=== PATIENT | female | born 1975 | race Caucasian/White ===

== ENCOUNTER 2019-10-20 08:34 | Emergency (ER) | payer OTHER, SELFPAY ==
--- NOTE | ~2019-10-20 | CT_ITS ---
EXAMINATION: CT abdomen pelvis w con DATE: 10/20/2019 09:59 INDICATION: Right-sided abdominal pain TECHNIQUE: Computed tomography (CT) of the abdomen and pelvis was performed with 100 mL Omnipaque-350 intravenous contrast. Automated exposure control and iterative reconstruction technique were employe d. The dose-length product was 1537.63 mGy-cm. COMPARISON: 01/22/2010 FINDINGS: In the dependent right lower lobe there are ground glass opacities and ill-defined centrilobular nodu les in a small region becoming confluent consistent with pneumonia or aspiration. Heart size is david l. No pericardial or pleural effusion. Small sliding-type hiatal hernia with suture line along the gr eater curvature of the stomach consistent with prior sleeve gastrectomy. Gradient of dependently laye ring high attenuation sludge versus gallstones in the otherwise normal-appearing gallbladder. No dila tion or pericholecystic inflammatory change to suggest acute cholecystitis. Liver, spleen, pancreas, bilateral adrenal glands and right kidney are normal. 2.5 cm left renal cyst. Mild scattered colonic diverticulosis without adjacent inflammatory change to suggest diverticulitis. Small bowel and append ix are normal. Bladder and bilateral adnexa are normal. There is a T-shaped IUD the cross limbs of wh ich are oriented anteroposteriorly as opposed to transversely within the normally oriented anteverted uterus suggesting extension into the myometrium. No free intraperitoneal gas or fluid. No pathologic ally enlarged abdominal or pelvic lymphadenopathy. Moderate thoracic and mild lumbar spondylosis. IMPRESSION: 1. Right lower lobe dependent lung disease consistent with pneumonia or aspiration. 2. Sludge versus gallstones in the normal appearing gallbladder. 3. Diverticulosis. 4. IUD with atypical orientation within the uterus suggesting the limbs may extend into the myometriu m. Reviewed, dictated and finalized at location A. BODY DESIGNER IMPRESSION: 1. Right lower lobe dependent lung disease consistent with pneumonia or aspirat ion. 2. Sludge versus gallstones in the normal appearing gallbladder. 3. Diverticulosis. 4. IUD with atypical orientation within the uterus suggesting the limbs may ext end into the myometrium.
[2019-10-20 08:50] VITALS: BP 156/102; PULSE 107; RESP 20; TEMP 37; O2SAT 100
--- NOTE | 2019-10-20 09:26 | ED.BACK ---
HPI - Back Pain/Injury General Chief Complaint: Back Pain/Injury Stated Complaint: right flank pain Time Seen by Provider: 10/20/19 09:06 Source: patient Mode of arrival: ambulatory Limitations: no limitations History of Present Illness HPI Narrative: This is a 44 year old female that presents to the ER for right sided abdominal pain since yesterday. Reports sharp pain in the right side that radiates into the right lower abdomen. Reports the pain has been constant. Reports it is worse with movement. Also reports some nausea. Denies fever, vomiting, dysuria, or hematuria. Related Data Home Medications Medication Instructions Recorded Confirmed buspirone 5 mg tablet 10 mg PO DAILY 08/02/19 fexofenadine 180 mg tablet 180 mg PO DAILY 08/02/19 levonorgestrel 20 mcg/24 hours (5 1 device I-UTERINE ONCE 08/02/19 yrs) 52 mg intrauterine device ergocalciferol (vitamin D2) 50,000 unit PO WEEKLY 10/20/19 [Vitamin D2] irbesartan 150 mg PO DAILY 10/20/19 paroxetine HCl [Paxil] 50 mg PO QAM 10/20/19 vitamin B complex [B 1 tablet PO DAILY 10/20/19 Complex-Vitamin B12] Allergies Allergy/AdvReac Type Severity Reaction Status Date / Time No Known Allergies Allergy Unverified 10/20/19 09:06 Review of Systems Review of Systems: Narrative: CONSTITUTIONAL: Denies fever CARDIOVASCULAR: Denies chest pain RESPIRATORY: Denies dyspnea. GASTROINTESTINAL: Reports abdominal pain, nausea. Denies vomiting, diarrhea. GENITOURINARY: Denies dysuria or hematuria. All systems reviewed & are unremarkable except as noted in HPI and below PMFSH Past Medical History Medical History (Updated 10/20/19 @ 10:38 by Renee Alvarez PA-C) History of anxiety History of depression History of hypertension History of sleep apnea Surgical History Surgical History (Updated 10/20/19 @ 09:30 by Renee Alvarez PA-C) History of exploratory laparotomy History of gastric bypass Family History Family History (Updated 11/19/17 @ 08:27 by DOCTOR UNKNOWN) Father Diabetes mellitus Hypertension Family history of malignant neoplasm Mother Diabetes mellitus Hypertension Family history of malignant neoplasm Other Family history of arthritis Social History Social History (Updated 10/20/19 @ 09:31 by Renee Alvarez PA-C) Smoking status: Current every day smoker Smoking end date: 09/01/09 Alcohol intake: current Substance use: never Exam Narrative: Exam Narrative: GENERAL: Well-appearing, well-nourished, and in no acute distress. HEAD: Normocephalic, atraumatic. EYES: EOMI. CHEST: Clear to auscultation. No respiratory distress. No wheezes rales or rhonchi HEART: Regular rate and rhythm. No murmur heard. Normal peripheral pulses. ABDOMEN: Soft, nondistended, normal active bowel sounds. Mild tenderness to palpation of the right mid abdomen, without guarding. No CVA tenderness EXTREMITIES: Normal range of motion. No edema. SKIN: Warm, dry, no rash. NEURO: No focal deficits. Alert and oriented x3. PSYCH: Normal mood and affect Course Vital Signs Vital signs: Vital Signs Temperature 98.6 F 10/20/19 08:50 Pulse Rate 107 H 10/20/19 08:50 Respiratory Rate 20 10/20/19 08:50 Blood Pressure 156/102 H 10/20/19 08:50 Pulse Oximetry 100 10/20/19 08:50 Temperature 98.6 F 10/20/19 08:50 Pulse Rate 100 10/20/19 09:40 Respiratory Rate 20 10/20/19 09:40 Blood Pressure 166/103 H 10/20/19 09:40 Pulse Oximetry 99 10/20/19 09:40 MDM - Back Pain/Injury MDM Narrative Medical decision making narrative: Patient presents to the emergency department for right-sided abdominal pain since yesterday. She is afebrile and nontoxic-appearing. Blood pressure is elevated to 150s-160s/100. Patient does have a history of hypertension and reports she did not take her medication this morning. Was instructed to take her medication as prescribed. Otherwise vitals are stable. Mild leukocytosis on CBC to 14.
[2019-10-20 09:40] VITALS: BP 166/103; PULSE 100; RESP 20; O2SAT 99
[2019-10-20 09:41] LABS: Basophils Absolute Auto 0.1 K/mm3 (0.0-0.1); Basophils Percent Auto 0.5 % (0.2-1.2); Eosinophils Absolute Auto 0.2 K/mm3 (0-0.3); Eosinophils Percent Auto 1.3 % (0-4.4); Hematocrit 37.6 % (37.0-47.0); Hemoglobin 12.2 g/dL (12.0-15.0); Immature Granulocyte Absolute 0.05 K/mm3 (0.00-0.031); Immature Granulocyte Percent A 0.3 % (0-0.5); Lymphocytes Absolute Auto 1.87 K/mm3 (0.9-3.2); Lymphocytes Percent Auto 12.9 % (18.3-44.2); Mean Corpuscular HGB Conc 32.4 g/dl (32-36); Mean Corpuscular Hemoglobin 30.3 pg (26-34); Mean Corpuscular Volume 93.5 fl (80-100); Mean Platelet Volume 10.3 fl (7.4-10.4); Monocytes Absolute Auto 0.7 K/mm3 (0.1-0.6); Monocytes Percent Auto 4.8 % (2.6-8.5); Neutrophils Absolute Auto 11.7 K/mm3 (1.3-6.7); Neutrophils Percent Auto 80.2 % (45.5-73.1); Platelet Count Result 235 k/mm3 (150-375); Red Blood Count 4.02 M/mm3 (4.2-5.4); Red Cell Distribution Width 12.9 % (11.5-14.5); White Blood Count 14.5 K/mm3 (4.5-10.0)
[2019-10-20 09:46] LABS: Add Urine Microscopic? YES; Appearance Urine Clear (Clear); Bacteria Urine Trace /hpf; Bilirubin Urine Negative (Negative); Blood Urine 3+ (Negative); Color Urine Colorless (Yellow); Glucose Urine UA Negative (Negative); Ketones Urine Negative (Negative); Leukocyte Esterase Ur Negative LEU/UL (Negative); Mucus Urine Rare /lpf; Nitrate Urine Negative (Negative); Protein Urine Negative (Negative); Specific Grav Ur 1.008 (1.001-1.035); Urobilinogen Urine Negative mg/dL (<2.0); WBC Urine 0-3 /hpf
[2019-10-20 09:53] LABS: Alanine Aminotransferase 21 U/L (4-35); Albumin Level 4.4 g/dL (3.5-5.1); Alkaline Phosphatase 120 U/L (38-126); Aspartate Amino Transferase 24 U/L (14-36); Bilirubin,Total 0.3 mg/dL (0.2-1.3); Blood Urea Nitrogen 20 mg/dL (7-17); Calcium 9.3 mg/dL (8.4-10.2); Carbon Dioxide 24 mmol/L (22-30); Chloride 100 mmol/L (98-107); Estimated CRCL calculation 137 ml/min; Estimated Glomerular Filt Rate > 60; Glucose 93 mg/dL (65-105); Lipase 150 U/L (23-300); Sodium 138 mmol/L (137-145)
[2019-10-20 09:54] LABS: Blood Urea Nitrogen 22 mg/dL (8-26); Estimated CRCL calculation 137 ml/min; Estimated Glomerular Filt Rate > 60
[2019-10-20 10:41] VITALS: BP 160/103; PULSE 99; RESP 18; O2SAT 99
[2019-10-20 11:48] VITALS: BP 142/74; PULSE 88; RESP 16; O2SAT 98
== END 2019-10-20 11:49 | disposition home or self-care (01) ==
PROVIDERS: Physician Assistant; Emergency Provider Family Medicine; PCP Family Medicine
DX: J18.9 Pneumonia, unspecified organism (principal); Z97.5 Presence of (intrauterine) contraceptive device; F41.9 Anxiety disorder, unspecified; F32.9 Major depressive disorder, single episode, unspecified; I10 Essential (primary) hypertension; G47.30 Sleep apnea, unspecified; Z98.84 Bariatric surgery status; K57.90 Diverticulosis of intestine, part unspecified, without perforation or abscess without bleeding; R93.2 Abnormal findings on diagnostic imaging of liver and biliary tract; Z87.891 Personal history of nicotine dependence
CPT/HCPCS: 36415; 74177; 80053; 81001; 81025; 83690; 85025; 99284; A9270; Q9967

== ENCOUNTER 2019-10-26 14:36 | Outpatient (CLI) | payer OTHER, SELFPAY ==
--- NOTE | ~2019-10-26 | US_ITS ---
EXAMINATION: US transvaginal DATE: 10/26/2019 15:06 INDICATION: Right lower quadrant abdominal pain. IUD with irregular positioning on prior CT. TECHNIQUE: Multiple endovaginal sonographic images of the pelvis were obtained. COMPARISON: None. FINDINGS: The uterus measures 7.8 x 3.9 x 5.0 cm. The endometrial complex measures 6 mm in thickness. Near ech ogenic IUD appears centered in the endometrial complex at the lower uterine segment. The IUD that maria r ears to extend into the myometrium posterior to the endometrial complex at the more cephalad uterine body. The side arms which appeared to also extend into the myometrium on the prior CT are not clearly visualized in the current study. There are several hypoechoic uterine fibroids the largest the fundu s measuring 2.2 x 2.1 x 2.0 cm and a smaller at the anterior body of the uterus measuring 1.4 x 1.1 x 2.0 cm The right ovary measures 2.5 x 1.3 x 2.3 cm and contains a 9 mm anechoic follicle. The left o vary is not visualized due to shadowing bowel gas at the left adnexal region. Vascular flow is identi fied in the right ovary on color Doppler. There is no free fluid in the pelvis. IMPRESSION: 1. Fibroid uterus. 2. IUD which appears centered in the endometrial complex at the lower uterine segment but which appea rs to extend into the myometrium posterior to the endometrial complex at the uterine body. Reviewed, dictated and finalized at location A. HEAD WRECKER IMPRESSION: 1. Fibroid uterus. 2. IUD which appears centered in the endometrial complex at the lower uterine s egment but which appears to extend into the myometrium posterior to the endomet rial complex at the uterine body.
== END 2019-10-26 14:37 ==
PROVIDERS: PCP Family Medicine; Visit Provider Obstetrics & Gynecology Gynecology
DX: D25.9 Leiomyoma of uterus, unspecified (principal); Z97.5 Presence of (intrauterine) contraceptive device
CPT/HCPCS: 76830

== ENCOUNTER 2019-10-29 14:19 | Outpatient (CLI) | payer OTHER, SELFPAY ==
[2019-10-29 15:41] LABS: Basophils Absolute Auto 0.1 K/mm3 (0.0-0.1); Basophils Percent Auto 0.9 % (0.2-1.2); Eosinophils Absolute Auto 0.2 K/mm3 (0-0.3); Eosinophils Percent Auto 2.7 % (0-4.4); Hematocrit 39.2 % (37.0-47.0); Hemoglobin 12.7 g/dL (12.0-15.0); Immature Granulocyte Absolute 0.03 K/mm3 (0.00-0.031); Immature Granulocyte Percent A 0.4 % (0-0.5); Lymphocytes Absolute Auto 1.82 K/mm3 (0.9-3.2); Lymphocytes Percent Auto 21.5 % (18.3-44.2); Mean Corpuscular HGB Conc 32.4 g/dl (32-36); Mean Corpuscular Hemoglobin 30.3 pg (26-34); Mean Corpuscular Volume 93.6 fl (80-100); Mean Platelet Volume 10.4 fl (7.4-10.4); Monocytes Absolute Auto 0.6 K/mm3 (0.1-0.6); Monocytes Percent Auto 7.3 % (2.6-8.5); Neutrophils Absolute Auto 5.7 K/mm3 (1.3-6.7); Neutrophils Percent Auto 67.2 % (45.5-73.1); Platelet Count Result 273 k/mm3 (150-375); Red Blood Count 4.19 M/mm3 (4.2-5.4); White Blood Count 8.5 K/mm3 (4.5-10.0)
[2019-10-29 16:06] LABS: Alanine Aminotransferase 25 U/L (4-35); Albumin Level 4.1 g/dL (3.5-5.1); Alkaline Phosphatase 98 U/L (38-126); Aspartate Amino Transferase 28 U/L (14-36); Bilirubin,Total 0.4 mg/dL (0.2-1.3); Blood Urea Nitrogen 14 mg/dL (7-17); Calcium 8.7 mg/dL (8.4-10.2); Carbon Dioxide 26 mmol/L (22-30); Chloride 102 mmol/L (98-107); Estimated Glomerular Filt Rate > 60; Glucose 100 mg/dL (65-105); Potassium 4.4 mmol/L (3.4-5.0); Sodium 138 mmol/L (137-145)
== END 2019-10-29 14:20 | disposition home or self-care (01) ==
PROVIDERS: PCP Family Medicine; Visit Provider Physician Assistant
DX: R10.31 Right lower quadrant pain (principal)
CPT/HCPCS: 36415; 80053; 85025

== ENCOUNTER 2020-03-27 12:47 | Emergency (ER) | payer OTHER, SELFPAY ==
[2020-03-27 12:52] VITALS: BP 160/114; PULSE 92; RESP 18; TEMP 36.8; O2SAT 98
--- NOTE | 2020-03-27 13:17 | ED.GENADULT ---
HPI - General Adult General Chief complaint: Headache <MIGUEL Hudson Last Filed: 03/27/20 14:56> Stated complaint: high bp/barr <MIGUEL Hudson Last Filed: 03/27/20 14:56> Time Seen by Provider: 03/27/20 13:02 <MIGUEL Hudson Last Filed: 03/27/20 14:56> Source: patient <MIGUEL Hudson Last Filed: 03/27/20 14:56> Mode of arrival: ambulatory <MIGUEL Hudson Last Filed: 03/27/20 14:56> Limitations: no limitations <MIGUEL Hudson Last Filed: 03/27/20 14:56> History of Present Illness HPI narrative: Patient is a 44-year-old female who presents to emergency department for evaluation of headache since Friday which is bandlike with pressure sensation denies similar occurrence in the past has taken [id number] medications with minimal improvement. Initially had pressure behind the eyes and thought it might be congestion but denies other URI symptoms or runny nose. Patient on arrival is in no distress resting comfortably in the room has not taken anything today. Presents with normal gait has not been seen for this complaint <MIGUEL Hudson Last Filed: 03/27/20 14:56> Related Data Home medications: Home Medications Medication Instructions Recorded Confirmed fexofenadine 180 mg tablet 180 mg PO DAILY 08/02/19 levonorgestrel 20 mcg/24 hours (5 1 device I-UTERINE ONCE 08/02/19 yrs) 52 mg intrauterine device ergocalciferol (vitamin D2) 50,000 unit PO WEEKLY 10/20/19 [Vitamin D2] vitamin B complex [B 1 tablet PO DAILY 10/20/19 Complex-Vitamin B12] <MIGUEL Hudson Last Filed: 03/27/20 14:56> Allergies/adverse reactions: Allergies Allergy/AdvReac Type Severity Reaction Status Date / Time No Known Allergies Allergy Verified 03/27/20 12:51 <MIGUEL Hudson Last Filed: 03/27/20 14:56> Review of Systems Review of Systems: All systems reviewed & are unremarkable except as noted in HPI and below <MIGUEL Hudson Last Filed: 03/27/20 14:56> [facility] Past Medical History Medical History: Medical History Anxiety Bilateral lower extremity edema Essential hypertension History of anxiety History of depression History of hypertension History of sleep apnea Myalgia Nasal sore RLL pneumonia RLQ abdominal pain <Devaughn Rangel PA-C - Last Filed: 03/27/20 14:56> Surgical History Surgical History: Surgical History History of exploratory laparotomy History of gastric bypass <Devaughn Rangel PA-C - Last Filed: 03/27/20 14:56> Family History Family History: Family History (Updated 11/19/17 @ 08:27 by DOCTOR UNKNOWN) Father Diabetes mellitus Hypertension Family history of malignant neoplasm Mother Diabetes mellitus Hypertension Family history of malignant neoplasm Other Family history of arthritis <Devaughn Rangel PA-C - Last Filed: 03/27/20 14:56> Social History Social History: Social History Smoking status: Current every day smoker Smoking end date: 09/01/09 Alcohol intake: current Substance use: never Gender identity (if verbalized by the patient): Female <Devaughn Rangel PA-C - Last Filed: 03/27/20 14:56> Exam Narrative: Exam Narrative: GENERAL: Well-appearing, obese, and in no acute distress. HEAD: Normocephalic, atraumatic. EYES: PERRLA and EOMI. ENT: Nares clear, no rhinorrhea or epistaxis. Mucous membranes moist. Oropharynx without tonsillar hypertrophy exudate or other lesions. Bilateral TMs pearly krishnan nonbulging NECK: Supple. No adenopathy or masses. CHEST: Clear to auscultation. No respiratory distress. No wheezes rales or rhonchi HEART: Regular rate and rhythm. No murmur heard. Normal peripheral pulses. ABDOMEN: S
[2020-03-27 13:31] LABS: Basophils Absolute Auto 0.1 K/mm3 (0.0-0.1); Basophils Percent Auto 0.9 % (0.2-1.2); Eosinophils Absolute Auto 0.3 K/mm3 (0-0.3); Eosinophils Percent Auto 3.3 % (0-4.4); Hematocrit 38.5 % (37.0-47.0); Hemoglobin 12.8 g/dL (12.0-15.0); Immature Granulocyte Absolute 0.03 K/mm3 (0.00-0.031); Immature Granulocyte Percent A 0.3 % (0-0.5); Lymphocytes Absolute Auto 1.63 K/mm3 (0.9-3.2); Lymphocytes Percent Auto 16.7 % (18.3-44.2); Mean Corpuscular HGB Conc 33.2 g/dl (32-36); Mean Corpuscular Hemoglobin 30.5 pg (26-34); Mean Corpuscular Volume 91.7 fl (80-100); Mean Platelet Volume 10.1 fl (7.4-10.4); Monocytes Absolute Auto 0.7 K/mm3 (0.1-0.6); Monocytes Percent Auto 6.8 % (2.6-8.5); Platelet Count Result 250 k/mm3 (150-375); Red Cell Distribution Width 12.9 % (11.5-14.5); White Blood Count 9.8 K/mm3 (4.5-10.0)
[2020-03-27 13:43] LABS: Alanine Aminotransferase 24 U/L (4-35); Albumin Level 4.4 g/dL (3.5-5.1); Alkaline Phosphatase 111 U/L (38-126); Aspartate Amino Transferase 22 U/L (14-36); Bilirubin,Total 0.3 mg/dL (0.2-1.3); Blood Urea Nitrogen 17 mg/dL (7-17); Calcium 8.7 mg/dL (8.4-10.2); Carbon Dioxide 24 mmol/L (22-30); Chloride 101 mmol/L (98-107); Estimated CRCL calculation 142 ml/min; Estimated Glomerular Filt Rate > 60; Glucose 115 mg/dL (65-105); Sodium 135 mmol/L (137-145)
[2020-03-27 13:58] VITALS: BP 179/112; PULSE 83; RESP 20; O2SAT 98
[2020-03-27] MEDS: FAMOTIDINE 20 MG/2 ML VIAL IV PUSH (14:03)
[2020-03-27] MEDS: SODIUM CHLORIDE 0.9% IV 1,000 ML 999 ML IV CONT (14:03)
[2020-03-27 14:44] VITALS: BP 170/102; PULSE 83; RESP 18; O2SAT 99
[2020-03-27 15:05] VITALS: BP 160/107; PULSE 89; RESP 20; O2SAT 99
== END 2020-03-27 15:09 | disposition home or self-care (01) ==
PROVIDERS: Emergency Medicine Emergency Medical Services; Emergency Provider Emergency Medicine; PCP Family Medicine
DX: R51 Headache (principal); I10 Essential (primary) hypertension; G47.30 Sleep apnea, unspecified; Z98.84 Bariatric surgery status
CPT/HCPCS: 36415; 80053; 85025; 96361; 96365; 96375; 99284; J0131; J2060; J7030

== ENCOUNTER 2020-03-28 13:55 | Outpatient (CLI) | payer OTHER, SELFPAY ==
--- NOTE | ~2020-03-28 | CT_ITS ---
EXAMINATION: CT brain wo con INDICATION: Headache COMPARISON: 07/21/2018 TECHNIQUE: Standard unenhanced head CT. The dose-length product (DLP) was 605.33 mGy-cm. The mA was a djusted according to patient size. Iterative reconstruction technique was employed. FINDINGS: There is no intracranial hemorrhage, acute infarction, or abnormal mass lesion. The ventric les are normal. There is no abnormal mass effect or midline shift. The krishnan-white matter differentiat ion is normal. The basal cisterns are patent. The orbits are normal. The paranasal sinuses, mastoids and calvarium are normal. IMPRESSION: 1. No acute intracranial abnormality. Reviewed, dictated and finalized at location B.
== END 2020-03-28 13:56 | disposition home or self-care (01) ==
PROVIDERS: PCP Family Medicine; Visit Provider Physician Assistant
DX: R51 Headache (principal)
CPT/HCPCS: 70450

== ENCOUNTER 2020-04-01 12:37 | Outpatient (CLI) | payer OTHER, SELFPAY ==
[2020-04-01 12:51] LABS: Basophils Absolute Auto 0.1 K/mm3 (0.0-0.1); Basophils Percent Auto 0.9 % (0.2-1.2); Eosinophils Absolute Auto 0.3 K/mm3 (0-0.3); Eosinophils Percent Auto 3.2 % (0-4.4); Hematocrit 35.3 % (37.0-47.0); Hemoglobin 11.8 g/dL (12.0-15.0); Immature Granulocyte Absolute 0.04 K/mm3 (0.00-0.031); Immature Granulocyte Percent A 0.4 % (0-0.5); Lymphocytes Absolute Auto 1.92 K/mm3 (0.9-3.2); Lymphocytes Percent Auto 21.1 % (18.3-44.2); Mean Corpuscular HGB Conc 33.4 g/dl (32-36); Mean Corpuscular Volume 92.7 fl (80-100); Mean Platelet Volume 10.6 fl (7.4-10.4); Monocytes Absolute Auto 0.7 K/mm3 (0.1-0.6); Monocytes Percent Auto 7.2 % (2.6-8.5); Neutrophils Absolute Auto 6.1 K/mm3 (1.3-6.7); Neutrophils Percent Auto 67.2 % (45.5-73.1); Platelet Count Result 243 k/mm3 (150-375); Red Blood Count 3.81 M/mm3 (4.2-5.4); Red Cell Distribution Width 12.8 % (11.5-14.5); White Blood Count 9.1 K/mm3 (4.5-10.0)
== END 2020-04-01 12:38 | disposition home or self-care (01) ==
LOC: ANHLAB 12:39
PROVIDERS: PCP Family Medicine; Visit Provider Physician Assistant
DX: R51 Headache (principal)
CPT/HCPCS: 36415; 85025

== ENCOUNTER 2020-04-07 08:41 | Emergency (ER) | payer OTHER, SELFPAY ==
[2020-04-07 08:47] VITALS: BP 168/107; PULSE 77; RESP 16; TEMP 36.7; O2SAT 98
--- NOTE | 2020-04-07 09:03 | ED.HA ---
HPI - Headache General Chief Complaint: Headache Stated Complaint: Headache x2 weeks Time Seen by Provider: 04/07/20 08:49 History of Present Illness HPI Narrative: Patient is a 44-year-old female who presents ER with headache. Ongoing for 13 days. Has been seen in the ER once before. She then followed up with her PCP who performed an outpatient CT scan on her brain. Patient also was noted to have had elevated blood pressures so she has been started on additional blood pressure medication. She reports that the only thing that has helped intermittently is Excedrin migraine which only helps for about 1 hour. She has no fevers or chills or sweats. She has had some mild nausea and occasional vomiting. She tried the sinus decongestants but she had no actual sinus congestion. Headache is throbbing and located over the left frontal region extending around the left side of her head. She does report that the headache is been diffuse at times as well. No trauma. Related Data Home Medications Medication Instructions Recorded Confirmed fexofenadine 180 mg tablet 180 mg PO DAILY 08/02/19 levonorgestrel 20 mcg/24 hours (5 1 device I-UTERINE ONCE 08/02/19 yrs) 52 mg intrauterine device ergocalciferol (vitamin D2) 50,000 unit PO WEEKLY 10/20/19 [Vitamin D2] vitamin B complex [B 1 tablet PO DAILY 10/20/19 Complex-Vitamin B12] Allergies Allergy/AdvReac Type Severity Reaction Status Date / Time No Known Allergies Allergy Verified 04/07/20 08:47 Review of Systems Review of Systems: All systems reviewed & are unremarkable except as noted in HPI and below Constitutional: Constitutional: Denies chills and Denies fever(s) Eyes: Eyes: Denies change in vision and Reports photophobia ENT: Denies nasal congestion and Denies sore throat Gastrointestinal: Gastrointestinal: Reports nausea and Reports vomiting Neurologic: Denies dizziness, Reports headache(s), Denies focal weakness and Denies numbness PMFSH Past Medical History Medical History (Updated 04/07/20 @ 11:17 by Curtis Becerril MD) Anxiety Bilateral lower extremity edema Essential hypertension Headache History of anxiety History of depression History of hypertension History of sleep apnea Myalgia Nasal sore RLL pneumonia RLQ abdominal pain Surgical History Surgical History History of exploratory laparotomy History of gastric bypass Family History Family History (Updated 11/19/17 @ 08:27 by DOCTOR UNKNOWN) Father Diabetes mellitus Hypertension Family history of malignant neoplasm Mother Diabetes mellitus Hypertension Family history of malignant neoplasm Other Family history of arthritis Social History Social History (Updated 03/28/20 @ 11:03 by Ritu Fernando) Smoking status: Current every day smoker Smoking end date: 09/01/09 Alcohol intake: current Drinks per week: 12 Substance use: never Substance use type: does not use 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 HEAD: Normocephalic, atraumatic. EYES: PERRL and EOMI. ENT: Mucous membranes moist. CHEST: Clear to auscultation. No respiratory distress. HEART: Regular rate and rhythm. Normal peripheral pulses. ABDOMEN: Soft, nontender, nondistended. EXTREMITIES: Normal range of motion. No edema. NEURO: No focal deficits. Alert and oriented x3. PSYCH: Normal mood and affect. Course Course Emergency Course: Moderate improvement with Toradol/Reglan/Benadryl. Had additional nausea so she received Zofran. Unremarkable lab work. Recommend patient follow-up with PCP, keep track of possible triggers of headache, and may require neurology consultation. Vital Signs Vital signs: Vital Signs Temperature 98.1 F 04/07/20
[2020-04-07] MEDS: diphenhydrAMINE HCl INJ 50 MG/ML VIAL 25 MG IV PUSH (09:37)
[2020-04-07] MEDS: KETOROLAC 30 MG/ML VIAL (*BKC) IV PUSH (09:37)
[2020-04-07] MEDS: METOCLOPRAMIDE HCL INJ 10 MG/2 ML VIAL IV PUSH (09:38)
[2020-04-07 09:53] LABS: Basophils Absolute Auto 0.1 K/mm3 (0.0-0.1); Basophils Percent Auto 0.8 % (0.2-1.2); Eosinophils Absolute Auto 0.3 K/mm3 (0-0.3); Eosinophils Percent Auto 3.1 % (0-4.4); Hematocrit 41.1 % (37.0-47.0); Hemoglobin 13.9 g/dL (12.0-15.0); Immature Granulocyte Absolute 0.04 K/mm3 (0.00-0.031); Immature Granulocyte Percent A 0.4 % (0-0.5); Lymphocytes Absolute Auto 2.12 K/mm3 (0.9-3.2); Lymphocytes Percent Auto 20.6 % (18.3-44.2); Mean Corpuscular HGB Conc 33.8 g/dl (32-36); Mean Corpuscular Hemoglobin 30.7 pg (26-34); Mean Corpuscular Volume 90.7 fl (80-100); Mean Platelet Volume 10.8 fl (7.4-10.4); Monocytes Absolute Auto 0.9 K/mm3 (0.1-0.6); Monocytes Percent Auto 8.4 % (2.6-8.5); Neutrophils Absolute Auto 6.9 K/mm3 (1.3-6.7); Neutrophils Percent Auto 66.7 % (45.5-73.1); Platelet Count Result 270 k/mm3 (150-375); Red Blood Count 4.53 M/mm3 (4.2-5.4); Red Cell Distribution Width 12.3 % (11.5-14.5); White Blood Count 10.3 K/mm3 (4.5-10.0)
[2020-04-07 10:06] LABS: Alanine Aminotransferase 35 U/L (4-35); Albumin Level 4.5 g/dL (3.5-5.1); Alkaline Phosphatase 104 U/L (38-126); Aspartate Amino Transferase 32 U/L (14-36); Bilirubin,Total 0.5 mg/dL (0.2-1.3); Blood Urea Nitrogen 15 mg/dL (7-17); Carbon Dioxide 25 mmol/L (22-30); Chloride 98 mmol/L (98-107); Estimated CRCL calculation 109 ml/min; Estimated Glomerular Filt Rate > 60; Glucose 110 mg/dL (65-105); Sodium 135 mmol/L (137-145)
[2020-04-07] MEDS: ONDANSETRON INJ 4 MG/2 ML VIAL IV PUSH (10:19)
[2020-04-07 11:23] VITALS: BP 154/94; PULSE 65; RESP 166; O2SAT 97
== END 2020-04-07 11:34 | disposition home or self-care (01) ==
PROVIDERS: Emergency Provider Emergency Medicine; PCP Family Medicine
DX: R51 Headache (principal); I10 Essential (primary) hypertension; G47.30 Sleep apnea, unspecified; Z98.84 Bariatric surgery status; Z87.891 Personal history of nicotine dependence
CPT/HCPCS: 36415; 80053; 85025; 96374; 96375; 99284; J1200; J1885; J2405; J2765

== ENCOUNTER 2020-04-17 14:30 | Outpatient (CLI) | payer OTHER, SELFPAY ==
[2020-04-22 13:09] LABS: Renin 0.17 ng/mL/h (0.25-5.82)
== END 2020-04-17 14:31 | disposition home or self-care (01) ==
PROVIDERS: PCP Family Medicine; Visit Provider Physician Assistant
DX: I10 Essential (primary) hypertension (principal)
CPT/HCPCS: 36415; 82088; 84244

== ENCOUNTER → 2020-04-22 09:10 | Outpatient (CLI) | payer OTHER, SELFPAY ==
--- NOTE | ~2020-04-22 | US_ITS ---
EXAMINATION: US renal BI DATE: 04/22/2020 09:30 INDICATION: Essential hypertension TECHNIQUE: Multiple grayscale and Doppler ultrasound images of the kidneys were obtained. COMPARISON: CT, 10/20/2019 FINDINGS: The right kidney measures 9.3 x 4.6 x 5.6 cm. The left kidney measures 2.8 x 2.4 x 2.6 cm a nd contains a 2.8 cm cyst. The kidneys demonstrate normal parenchymal echogenicity. There is no hydro nephrosis. The bladder is normal. IMPRESSION: 1. Normal kidneys without hydronephrosis. Reviewed, dictated and finalized at location A.
== END ==
PROVIDERS: PCP Family Medicine; Visit Provider Physician Assistant
DX: I10 Essential (primary) hypertension (principal)
CPT/HCPCS: 76775

== ENCOUNTER 2020-06-18 09:36 | Outpatient (CLI) | payer OTHER, SELFPAY ==
--- NOTE | ~2020-06-18 | MR_ITS ---
EXAMINATION: MR brain/brain stem wo con DATE: 06/18/2020 10:29 INDICATION: Headache. TECHNIQUE: Magnetic resonance imaging (MRI) of the brain and brainstem was performed without intraven ous contrast. Sequences included sagittal and axial T1-weighted FSE, axial diffusion-weighted FS EPI, axial T2*-weighted GRE, axial T2-weighted FLAIR Propeller, and axial T2-weighted Propeller. Apparent diffusion coefficient (ADC) maps were created. COMPARISON: Head CT 03/28/2020 FINDINGS: There are scattered areas of nonspecific increased T2-weighted signal intensity in the cere bral white matter, which is within normal limits for the patient's age. There is no intracranial hemo rrhage, acute infarction, or abnormal intracranial mass lesion. The ventricles are normal in size. Th ere is mild mucosal thickening in left maxillary sinus. The orbits are normal. The mastoid air cells are normal. IMPRESSION: 1. Normal aging brain. Reviewed, dictated and finalized at location A. IMPRESSION: 1. Normal aging brain.
== END 2020-06-18 09:37 | disposition home or self-care (01) ==
PROVIDERS: PCP Family Medicine; Visit Provider Psychiatry & Neurology Neurology
DX: R51.9 Headache, unspecified (principal)
CPT/HCPCS: 70551

== ENCOUNTER 2020-12-20 05:12 | Emergency (ER) | payer OTHER, SELFPAY ==
[2020-12-20] VITALS (14 sets, daily range): BP systolic 155–188; BP diastolic 86–115; PULSE 73–94; RESP 12–20; TEMP 36.4; O2SAT 10–100
--- NOTE | ~2020-12-20 | XR_ITS ---
XR chest 1V portable DATE: 12/20/2020 06:03 INDICATION: Midline chest pain for 2 days TECHNIQUE: Portable AP chest on 12/20/2020 at 0550 hours COMPARISON: 07/21/2018 PA and lateral chest FINDINGS: Heart size is likely within normal range considering magnification associated with AP proje ction. No pulmonary infiltrate or consolidation, pleural effusion or pneumothorax. Degenerative spurring of the thoracic spine. IMPRESSION: No active disease Reviewed, dictated and finalized at location A. IMPRESSION: No active disease
--- NOTE | 2020-12-20 05:29 | PC.NURSE ---
pt c/o LLQ epigastric pain with assoc vomiting x 2 days. reports vomiting began first, and pt had bright red blood in it. pt reports last episode of vomiting was last night approx 1999. currently rates pain 4/10. no s/s of distress. placed on court recording monitor.
--- NOTE | 2020-12-20 05:33 | ECG_ITS ---
Measurements Intervals [place] Rate: 92 P: 61 CT: 156 QRS: 30 QRSD: 98 T: 33 QT: 344 QTc: 427 Interpretive Statements SINUS RHYTHM BASELINE WANDER- I, III NORMAL ECG Electronically Signed On 12-20-2020 7:18:50 CDT by Murphy Sotomayor D.O.
--- NOTE | 2020-12-20 05:39 | ED.CHESTPAIN ---
HPI - Chest Pain General Chief Complaint: Chest Pain Stated Complaint: chest pain Time Seen by Provider: 12/20/20 05:17 Source: patient Mode of arrival: ambulatory Limitations: no limitations History of Present Illness HPI narrative: This is a 45 year old female with history of hypertension, obesity, and anxiety who presents for evaluation of left lower chest pain x 3 days. She denies nausea and vomiting on Friday . After emesis began, she developed left upper abdominal pain pain that radiates around to her back. She denies vomiting today but she continues to have left chest pain. This pain is worse with inspiration, and she reports she was short of breath coming to ER today. She reports fatigue and states she has been been sleeping for 48 hours. She denies fever, chills or cough. She reports having diarrhea on Friday. Related Data Home Medications Medication Instructions Recorded Confirmed fexofenadine 180 mg tablet 180 mg PO DAILY 08/02/19 10/03/20 levonorgestrel 20 mcg/24 hours (6 1 device I-UTERINE ONCE 08/02/19 10/03/20 yrs) 52 mg intrauterine device ergocalciferol (vitamin D2) 50,000 unit PO WEEKLY 10/20/19 10/03/20 [Vitamin D2] vitamin B complex [B 1 tablet PO DAILY 10/20/19 10/03/20 Complex-Vitamin B12] spironolactone 25 mg tablet 25 mg PO DAILY 08/29/20 10/03/20 Allergies Allergy/AdvReac Type Severity Reaction Status Date / Time No Known Allergies Allergy Verified 10/03/20 15:20 Review of Systems Review of Systems: All systems reviewed & are unremarkable except as noted in HPI and below Constitutional: Constitutional: Denies chills and Denies fever(s) ENT: Denies sore throat Cardiovascular: Cardiovascular: Reports chest pain Respiratory: Respiratory: Denies cough and Reports dyspnea Gastrointestinal: Gastrointestinal: Reports diarrhea, Reports nausea and Reports vomiting Musculoskeletal: Musculoskeletal: Reports back pain PMFSH Past Medical History Medical History Anxiety Bilateral lower extremity edema Essential hypertension Headache History of anxiety History of depression History of hypertension History of sleep apnea Myalgia Nasal sore RLL pneumonia RLQ abdominal pain Surgical History Surgical History History of exploratory laparotomy History of gastric bypass Family History Family History (Updated 11/19/17 @ 08:27 by DOCTOR UNKNOWN) Father Diabetes mellitus Hypertension Family history of malignant neoplasm Mother Diabetes mellitus Hypertension Family history of malignant neoplasm Other Family history of arthritis Social History Social History (Updated 10/03/20 @ 15:21 by Renetta Boswell) Years smoked: 30 Smoking status: Current some day smoker Tobacco type: cigarettes Second hand tobacco smoke exposure: No Smoking end date: 09/01/09 Alcohol intake: current Drinks per week: 12 Substance use: never Substance use type: does not use 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 Gender identity (if verbalized by the patient): Female Exam Const: General: no acute distress and alert Nutritional Appearance: obese Orientation/consciousness: patient oriented x3 Eyes: EOM: EOMs intact bilaterally Chest: Chest palpation & inspection: normal inspection of the chest Resp: Effort & Inspection: normal respiratory effort and no retractions Auscultation: clear to auscultation bilaterally Cardio: Rate: regular rate Rhythm: regular rhythm Heart sounds: no murmurs GI: GI Palp: Yes Soft to palpation, Yes Tenderness to palpation present (GI) (LUQ), No Guarding due to palpation present (GI) and No Rigid due to palpation Auscultation: normal bowel sounds Other: guaic negative Skin: General skin exam: normal color Rashes: no rashes Neuro: General: patient oriented x3, moves all extremities
[2020-12-20 05:52] LABS: Basophils Absolute Auto 0.1 K/mm3 (0.0-0.1); Basophils Percent Auto 0.8 % (0.2-1.2); Eosinophils Absolute Auto 0.2 K/mm3 (0-0.3); Eosinophils Percent Auto 2.3 % (0-4.4); Hematocrit 36.3 % (37.0-47.0); Hemoglobin 12.1 g/dL (12.0-15.0); Immature Granulocyte Absolute 0.03 K/mm3 (0.00-0.031); Immature Granulocyte Percent A 0.3 % (0-0.5); Lymphocytes Absolute Auto 2.04 K/mm3 (0.9-3.2); Lymphocytes Percent Auto 23.7 % (18.3-44.2); Mean Corpuscular HGB Conc 33.3 g/dl (32-36); Mean Corpuscular Hemoglobin 30.6 pg (26-34); Mean Corpuscular Volume 91.7 fl (80-100); Mean Platelet Volume 9.8 fl (7.4-10.4); Monocytes Absolute Auto 0.6 K/mm3 (0.1-0.6); Monocytes Percent Auto 7.1 % (2.6-8.5); Neutrophils Absolute Auto 5.7 K/mm3 (1.3-6.7); Neutrophils Percent Auto 65.8 % (45.5-73.1); Platelet Count Result 253 k/mm3 (150-375); Red Blood Count 3.96 M/mm3 (4.2-5.4); Red Cell Distribution Width 12.2 % (11.5-14.5); White Blood Count 8.6 K/mm3 (4.5-10.0)
[2020-12-20 06:01] LABS: INR 0.9; Prothrombin Time 12.9 Seconds (11.1-14.7)
[2020-12-20 06:02] LABS: Partial Thromboplastin Time 25.2 SECONDS (22.3-36.8)
--- NOTE | 2020-12-20 06:04 | PC.NURSE ---
Report to BAHMAN Balderas.
[2020-12-20 06:19] LABS: D Dimer 0.27 ug/mL (<0.48)
[2020-12-20 06:21] LABS: Alanine Aminotransferase 21 U/L (4-35); Albumin Level 4.3 g/dL (3.5-5.1); Alkaline Phosphatase 88 U/L (38-126); Anion Gap 6 mmol/L (8-16); Aspartate Amino Transferase 34 U/L (14-36); Bilirubin,Total 0.3 mg/dL (0.2-1.3); Blood Urea Nitrogen 20 mg/dL (7-17); Calcium 8.7 mg/dL (8.4-10.2); Carbon Dioxide 27 mmol/L (22-30); Chloride 102 mmol/L (98-107); Estimated CRCL calculation 145 ml/min; Estimated Glomerular Filt Rate > 60; Glucose 103 mg/dL (65-105); Lipase 102 U/L (23-300); Magnesium 1.7 mg/dL (1.6-2.3); Potassium 4.2 mmol/L (3.4-5.0); Sodium 135 mmol/L (137-145)
[2020-12-20 06:26] LABS: Add Urine Microscopic? YES; Appearance Urine Clear (Clear); Bilirubin Urine Negative (Negative); Blood Urine 1+ (Negative); Color Urine Yellow (Yellow); Glucose Urine UA Negative (Negative); Ketones Urine Negative (Negative); Leukocyte Esterase Ur Negative LEU/UL (Negative); Mucus Urine Rare /lpf; Nitrate Urine Negative (Negative); Protein Urine Negative (Negative); RBC Urine 0-2 /hpf (0-2); Specific Grav Ur 1.018 (1.001-1.035); Squamous Epithelial Cell Urine Few /hpf (Few); Urobilinogen Urine Negative mg/dL (<2.0); WBC Urine 0-3 /hpf
[2020-12-20 06:27] LABS: Troponin I < 0.012 ng/mL (0.000-0.034)
[2020-12-20] MEDS: ONDANSETRON INJ 4 MG/2 ML VIAL IV PUSH (06:39)
[2020-12-20] MEDS: METOPROLOL TARTRATE 50 MG TAB PO (06:59)
[2020-12-20] MEDS: IRBESARTAN 150 MG TABLET 300 MG PO (07:12)
[2020-12-20] MEDS: VERAPAMIL HCL ER 240 MG TABLET.ER PO (07:12)
[2020-12-20 18:26] LABS: SARS-CoV-2 RNA PCR Negative
== END 2020-12-20 08:06 | disposition home or self-care (01) ==
PROVIDERS: Emergency Provider General Practice; PCP Family Medicine
DX: R11.2 Nausea with vomiting, unspecified (principal); R10.12 Left upper quadrant pain; R07.89 Other chest pain; Z20.822 Contact with and (suspected) exposure to COVID-19; I10 Essential (primary) hypertension; G47.30 Sleep apnea, unspecified; Z98.84 Bariatric surgery status; F17.210 Nicotine dependence, cigarettes, uncomplicated
CPT/HCPCS: 36415; 71045; 80053; 81001; 81025; 83690; 83735; 84484; 85025; 85380; 85610; 85730; 93005; 96374; 96375; 99284; A9270; C9803; J0131; J2405; U0003; U0005

== ENCOUNTER 2021-01-01 13:15 | Emergency (ER) | payer OTHER, SELFPAY ==
--- NOTE | ~2021-01-01 | XR_ITS ---
EXAMINATION: XR chest 2V DATE: 01/01/2021 14:36 INDICATION: Shortness of breath and chest pressure TECHNIQUE: PA and lateral views of the chest are obtained. COMPARISON: 12/20/2020 FINDINGS: There are minimal opacities of the lung bases, right greater than left. There is no pleural effusion or pneumothorax. The cardiomediastinal silhouette is normal. There is moderate thoracic spo ndylosis. IMPRESSION: 1. Bibasilar opacities, right greater than left, consistent with atelectasis versus pneumonia. Reviewed, dictated and finalized at location A. IMPRESSION: 1. Bibasilar opacities, right greater than left, consistent with atelectasis ve rsus pneumonia.
[2021-01-01 13:36] VITALS: BP 173/99; PULSE 75; RESP 18; TEMP 37; O2SAT 97
--- NOTE | 2021-01-01 13:40 | ECG_ITS ---
Measurements Intervals [place] Rate: 74 P: 17 UT: 153 QRS: 33 QRSD: 102 T: 33 QT: 379 QTc: 423 Interpretive Statements SINUS RHYTHM BASELINE ARTIFACT- I, II, III, AVR, AVL, AVF, V1-V6 BORDERLINE ECG Electronically Signed On 01-01-2021 14:36:03 CDT by Murphy Sotomayor D.O.
--- NOTE | 2021-01-01 15:48 | ED.URI ---
HPI - URI/Sore Throat General Chief Complaint: Upper Respiratory Infection Stated Complaint: left sided cp, cough, fever Time Seen by Provider: 01/01/21 13:43 History of Present Illness HPI Narrative: Patient is a 45-year-old female who presents ER with cough. Patient reports its been ongoing for last few days and is very wet. Over the last day she has developed some pleuritic pain with it. She has had subjective fevers with chills. No known sick contacts. She also reports some chronic chest pain for the last month that has been treated with an antacid medication. No know sick contacts Related Data Home Medications Medication Instructions Recorded Confirmed fexofenadine 180 mg tablet 180 mg PO DAILY 08/02/19 12/26/20 levonorgestrel 20 mcg/24 hours (6 1 device I-UTERINE ONCE 08/02/19 12/26/20 yrs) 52 mg intrauterine device ergocalciferol (vitamin D2) 50,000 unit PO WEEKLY 10/20/19 12/26/20 [Vitamin D2] vitamin B complex [B 1 tablet PO DAILY 10/20/19 12/26/20 Complex-Vitamin B12] spironolactone 25 mg tablet 25 mg PO DAILY 08/29/20 12/26/20 Allergies Allergy/AdvReac Type Severity Reaction Status Date / Time No Known Allergies Allergy Verified 12/26/20 07:30 Review of Systems Review of Systems: All systems reviewed & are unremarkable except as noted in HPI and below Constitutional: Constitutional: Denies chills, Reports fever(s) and Denies weakness ENT: Denies nasal congestion and Denies sore throat Cardiovascular: Cardiovascular: Reports chest pain, Denies rapid heart rate and Denies radiating jaw, neck or arm pain Respiratory: Respiratory: Reports chest congestion, Reports cough, Reports dyspnea and Denies wheezing Gastrointestinal: Gastrointestinal: Denies abdominal pain, Denies nausea and Denies vomiting Genitourinary: Genitourinary: Denies nocturia and Denies dysuria [facility] Past Medical History Medical History Anxiety Bilateral lower extremity edema Essential hypertension Headache History of anxiety History of depression History of hypertension History of sleep apnea Myalgia Nasal sore RLL pneumonia RLQ abdominal pain Surgical History Surgical History History of exploratory laparotomy History of gastric bypass Family History Family History (Updated 11/19/17 @ 08:27 by DOCTOR UNKNOWN) Father Diabetes mellitus Hypertension Family history of malignant neoplasm Mother Diabetes mellitus Hypertension Family history of malignant neoplasm Other Family history of arthritis Social History Social History Years smoked: 30 Smoking status: Current some day smoker Tobacco type: cigarettes Second hand tobacco smoke exposure: No Smoking end date: 09/01/09 Alcohol intake: current Drinks per week: 12 Substance use: never Substance use type: does not use 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 HEAD: Normocephalic, atraumatic. ENT: Mucous membranes moist. CHEST: Clear to auscultation. No respiratory distress. HEART: Regular rate and rhythm. Normal peripheral pulses. ABDOMEN: Soft, nontender, nondistended. EXTREMITIES: Normal range of motion. No edema. SKIN: Warm, dry, no rash. NEURO: Alert and oriented x3. Course Course Emergency Course: Patient informed results. Currently on a steroid pack explaining patient's leukocytosis. Patient be started on azithromycin and albuterol for home. Recommend follow-up with PCP. Patient verbalized understanding of need to self isolate until receiving her Covid results. Vital Signs Vital signs: Vital Signs Temperature 98.6 F 01/01/21 13:36 Pulse Rate 75 01/01/21 13:36 Respiratory Ra
[2021-01-01 15:54] LABS: Basophils Absolute Auto 0.1 K/mm3 (0.0-0.1); Basophils Percent Auto 0.5 % (0.2-1.2); Eosinophils Absolute Auto 0.2 K/mm3 (0-0.3); Eosinophils Percent Auto 1.4 % (0-4.4); Hematocrit 37.1 % (37.0-47.0); Hemoglobin 12.2 g/dL (12.0-15.0); Immature Granulocyte Absolute 0.07 K/mm3 (0.00-0.031); Immature Granulocyte Percent A 0.4 % (0-0.5); Lymphocytes Absolute Auto 2.56 K/mm3 (0.9-3.2); Lymphocytes Percent Auto 14.6 % (18.3-44.2); Mean Corpuscular HGB Conc 32.9 g/dl (32-36); Mean Corpuscular Hemoglobin 30.9 pg (26-34); Mean Corpuscular Volume 93.9 fl (80-100); Mean Platelet Volume 9.8 fl (7.4-10.4); Monocytes Absolute Auto 0.7 K/mm3 (0.1-0.6); Monocytes Percent Auto 3.8 % (2.6-8.5); Neutrophils Absolute Auto 13.9 K/mm3 (1.3-6.7); Neutrophils Percent Auto 79.3 % (45.5-73.1); Platelet Count Result 260 k/mm3 (150-375); Red Blood Count 3.95 M/mm3 (4.2-5.4); Red Cell Distribution Width 12.6 % (11.5-14.5); White Blood Count 17.5 K/mm3 (4.5-10.0)
[2021-01-01 16:04] LABS: Anion Gap 4 mmol/L (8-16); Blood Urea Nitrogen 18 mg/dL (7-17); Calcium 8.7 mg/dL (8.4-10.2); Carbon Dioxide 28 mmol/L (22-30); Chloride 102 mmol/L (98-107); Estimated CRCL calculation 114 ml/min; Estimated Glomerular Filt Rate > 60; Glucose 90 mg/dL (65-105); Sodium 134 mmol/L (137-145)
[2021-01-01 16:26] VITALS: BP 156/87; PULSE 73; RESP 20; O2SAT 100
[2021-01-02 14:27] LABS: SARS-CoV-2 RNA PCR Negative
== END 2021-01-01 16:28 | disposition still patient (30) ==
PROVIDERS: Emergency Provider Emergency Medicine; PCP Family Medicine
DX: J18.9 Pneumonia, unspecified organism (principal); Z20.822 Contact with and (suspected) exposure to COVID-19; I10 Essential (primary) hypertension; G47.30 Sleep apnea, unspecified; F41.9 Anxiety disorder, unspecified; F32.9 Major depressive disorder, single episode, unspecified; Z98.84 Bariatric surgery status; F17.210 Nicotine dependence, cigarettes, uncomplicated; R94.31 Abnormal electrocardiogram [ECG] [EKG]
CPT/HCPCS: 36415; 71046; 80048; 85025; 93005; 99283; C9803; U0003; U0005

== ENCOUNTER → 2021-01-30 14:39 | Outpatient (CLI) | payer OTHER, SELFPAY ==
--- NOTE | ~2021-01-30 | XR_ITS ---
XR chest 2V DATE: 01/30/2021 15:02 INDICATION: Cough TECHNIQUE: 2 views COMPARISON: 01/01/2021 2 view chest FINDINGS: Normal heart size. No hilar or mediastinal enlargement. No pulmonary infiltrate or consolid ation, pleural effusion or pulmonary vascular congestion or pneumothorax is detected. Degenerative sp urring of the thoracic spine. IMPRESSION: No active cardiopulmonary disease Reviewed, dictated and finalized at location A.
== END ==
PROVIDERS: PCP Family Medicine; Visit Provider Physician Assistant
DX: R05 Cough (principal); L91.9 Hypertrophic disorder of the skin, unspecified
CPT/HCPCS: 71046

== ENCOUNTER 2021-02-06 13:19 | Outpatient (CLI) | payer OTHER, SELFPAY ==
--- NOTE | ~2021-02-06 | US_ITS ---
US abdomen limited INDICATION: Right upper quadrant abdominal pain PROCEDURE: Realtime right upper abdominal ultrasound. COMPARISON: No prior studies for comparison. FINDINGS: The pancreas is normal without focal mass or pancreatic ductal dilation. Liver echotexture is normal without focal mass or intrahepatic biliary dilatation. There is normal directional flow i n the portal vein. There are gallstones. No gallbladder wall thickening or pericholecystic fluid. Common bile duct dick ures 5 mm. No sonographic Stein's sign. IMPRESSION: 1: Cholelithiasis. Reviewed, dictated and finalized at location B. IMPRESSION: 1: Cholelithiasis.
== END 2021-02-06 13:20 ==
LOC: MICIMG 13:20
PROVIDERS: PCP Family Medicine; Visit Provider Family Medicine
DX: R10.11 Right upper quadrant pain (principal); K80.20 Calculus of gallbladder without cholecystitis without obstruction
CPT/HCPCS: 76705

== ENCOUNTER 2021-02-11 20:15 | Emergency (ER) | payer OTHER, SELFPAY ==
[2021-02-11] VITALS (14 sets, daily range): BP systolic 157–183; BP diastolic 104–118; PULSE 76–88; RESP 10–26; TEMP 36.9; O2SAT 100
--- NOTE | ~2021-02-11 | XR_ITS ---
EXAMINATION: XR chest 1V portable 02/11/2021 21:50 INDICATION: Midsternal chest pain. Hypertension. PROCEDURE: AP portable chest COMPARISON: Comparison to multiple prior studies sequentially, with oldest reviewed study dated 07/03. FINDINGS: The lungs are clear. The cardiomediastinal silhouette is within normal limits. There are no pleural effusions. There is no pneumothorax suspected. IMPRESSION: 1: NO ACUTE CARDIOPULMONARY DISEASE. Reviewed, dictated and finalized at location A.
--- NOTE | 2021-02-11 20:21 | ECG_ITS ---
Measurements Intervals [place] Rate: 81 P: 53 HI: 155 QRS: 36 QRSD: 94 T: 25 QT: 346 QTc: 403 Interpretive Statements SINUS RHYTHM BASELINE ARTIFACT- II, III, AVR, AVF, V1, V3-V6 NORMAL ECG Electronically Signed On 02-12-2021 11:46:29 CDT by Murphy Sotomayor D.O.
--- NOTE | 2021-02-11 20:38 | ED.CHESTPAIN ---
HPI - Chest Pain General Chief Complaint: Chest Pain <Kyrie Neves MD - Last Filed: 02/14/21 15:12> Stated Complaint: generalized weakness <Kyrie Neves MD - Last Filed: 02/14/21 15:12> Time Seen by Provider: 02/11/21 20:18 <Kyrie Neves MD - Last Filed: 02/14/21 15:12> History of Present Illness HPI narrative: Left sided chest pain all day. under the left breast radiating to the left flank. Associated with SOB and fatigue. She reports vomiting multiple times yesterday. She was seen here for the same symptoms in December. She reports that she felt similar when she had anemia. <Kyrie Neves MD - Last Filed: 02/14/21 15:12> Related Data Home Medications: Home Medications Medication Instructions Recorded Confirmed levonorgestrel 20 mcg/24 hours (6 1 device I-UTERINE ONCE 08/02/19 01/12/21 yrs) 52 mg intrauterine device vitamin B complex [B 1 tablet PO DAILY 10/20/19 01/12/21 Complex-Vitamin B12] spironolactone 25 mg tablet 25 mg PO DAILY 08/29/20 01/12/21 <Kyrie Neves MD - Last Filed: 02/14/21 15:12> Allergies/Adverse Reactions: Allergies Allergy/AdvReac Type Severity Reaction Status Date / Time No Known Allergies Allergy Verified 02/14/21 10:05 <Kyrie Neves MD - Last Filed: 02/14/21 15:12> Review of Systems Review of Systems: All systems reviewed & are unremarkable except as noted in HPI and below <Kyrie Neves MD - Last Filed: 02/14/21 15:12> Constitutional: Constitutional: Denies fever(s) <Kyrie Neves MD - Last Filed: 02/14/21 15:12> ENT: Denies dizziness <Kyrie Neves MD - Last Filed: 02/14/21 15:12> Cardiovascular: Cardiovascular: Reports chest pain <Kyrie Neves MD - Last Filed: 02/14/21 15:12> Respiratory: Respiratory: Reports dyspnea <Kyrie Neves MD - Last Filed: 02/14/21 15:12> Gastrointestinal: Gastrointestinal: Denies abdominal pain <Kyrie Neves MD - Last Filed: 02/14/21 15:12> Genitourinary: Genitourinary: Reports no additional female genitourinary complaints <Kyrie Neves MD - Last Filed: 02/14/21 15:12> Neurologic: Reports system reviewed and no additional complaints, except as documented <Kyrie Neves MD - Last Filed: 02/14/21 15:12> [facility] Past Medical History Medical History: Medical History Anxiety Bilateral lower extremity edema Essential hypertension Headache History of anxiety History of depression History of hypertension History of sleep apnea Myalgia Nasal sore RLL pneumonia RLQ abdominal pain <Kyrie Neves MD - Last Filed: 02/14/21 15:12> Surgical History Surgical History: Surgical History History of exploratory laparotomy History of gastric bypass <Kyrie Neves MD - Last Filed: 02/14/21 15:12> Family History Family History: Family History Father Diabetes mellitus Hypertension Family history of malignant neoplasm Mother Diabetes mellitus Hypertension Family history of malignant neoplasm Other Family history of arthritis <Kyrie Neves MD - Last Filed: 02/14/21 15:12> Social History Social History: Social History Years smoked: 30 Smoking status: Current every day smoker Tobacco type: cigarettes Second hand tobacco smoke exposure: No Smoking end date: 09/01/09 Alcohol intake: current Drinks per week: 12 Substance use: never Substance use type: does not use 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
[2021-02-11 21:14] LABS: Basophils Absolute Auto 0.1 K/mm3 (0.0-0.1); Basophils Percent Auto 0.8 % (0.2-1.2); Eosinophils Absolute Auto 0.2 K/mm3 (0-0.3); Eosinophils Percent Auto 2.8 % (0-4.4); Hemoglobin 12.5 g/dL (12.0-15.0); Immature Granulocyte Absolute 0.02 K/mm3 (0.00-0.031); Immature Granulocyte Percent A 0.2 % (0-0.5); Lymphocytes Absolute Auto 1.75 K/mm3 (0.9-3.2); Lymphocytes Percent Auto 20.4 % (18.3-44.2); Mean Corpuscular HGB Conc 32.9 g/dl (32-36); Mean Corpuscular Hemoglobin 30.6 pg (26-34); Mean Corpuscular Volume 92.9 fl (80-100); Mean Platelet Volume 10.4 fl (7.4-10.4); Monocytes Absolute Auto 0.6 K/mm3 (0.1-0.6); Monocytes Percent Auto 6.5 % (2.6-8.5); Neutrophils Absolute Auto 5.9 K/mm3 (1.3-6.7); Neutrophils Percent Auto 69.3 % (45.5-73.1); Platelet Count Result 222 k/mm3 (150-375); Red Blood Count 4.09 M/mm3 (4.2-5.4); Red Cell Distribution Width 12.1 % (11.5-14.5); White Blood Count 8.6 K/mm3 (4.5-10.0)
--- NOTE | 2021-02-11 21:15 | PC.NURSE ---
pt to ED in POV, c/o upper medial chest pain, starting midline supra-clavicular and radiating to pt's upper back. pt reports past hx of cholylithiasis, gastric sleeve, htn, obesity. pt skin pwd. resps even/nonlabored. 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 vitals obtained. pt required US IV placement after 2 nurses failed obtaining line and labs as ordered.
[2021-02-11 21:23] LABS: Prothrombin Time 13.6 Seconds (11.1-14.7)
[2021-02-11 21:24] LABS: Alanine Aminotransferase 24 U/L (4-35); Albumin Level 4.3 g/dL (3.5-5.1); Alkaline Phosphatase 98 U/L (38-126); Anion Gap 10 mmol/L (8-16); Aspartate Amino Transferase 34 U/L (14-36); Bilirubin,Total 0.4 mg/dL (0.2-1.3); Blood Urea Nitrogen 16 mg/dL (7-17); Carbon Dioxide 25 mmol/L (22-30); Chloride 101 mmol/L (98-107); Estimated CRCL calculation 134 ml/min; Estimated Glomerular Filt Rate > 60; Glucose 102 mg/dL (65-105); Lipase 118 U/L (23-300); Partial Thromboplastin Time 24.7 SECONDS (22.3-36.8); Potassium 4.5 mmol/L (3.4-5.0); Sodium 136 mmol/L (137-145)
[2021-02-11 21:35] LABS: Troponin I < 0.012 ng/mL (0.000-0.034)
[2021-02-11] MEDS: SODIUM CHLORIDE 0.9% IV 1,000 ML 999 ML IV CONT (21:49)
--- NOTE | 2021-02-11 22:55 | PC.NURSE ---
pt's family member in room updated on plan. verbalized understanding.
[2021-02-12] VITALS (7 sets, daily range): BP systolic 154; BP diastolic 94–115; PULSE 76–83; RESP 16–19; O2SAT 100
[2021-02-12 00:39] LABS: Troponin I < 0.012 ng/mL (0.000-0.034)
== END 2021-02-12 01:16 | disposition home or self-care (01) ==
PROVIDERS: Emergency Medicine; Emergency Provider Emergency Medicine; PCP Family Medicine
DX: R07.89 Other chest pain (principal); I10 Essential (primary) hypertension; F41.9 Anxiety disorder, unspecified; F32.9 Major depressive disorder, single episode, unspecified; G47.30 Sleep apnea, unspecified; Z87.01 Personal history of pneumonia (recurrent)
CPT/HCPCS: 36415; 71045; 80053; 83690; 84484; 85025; 85610; 85730; 93005; 96360; 99284; J7030

== ENCOUNTER 2021-02-22 13:05 | Outpatient (CLI) | payer OTHER, SELFPAY ==
[2021-02-22 13:57] LABS: Amylase 69 U/L (30-110)
== END 2021-02-22 13:06 | disposition home or self-care (01) ==
LOC: ANHSURGERY 13:10
PROVIDERS: PCP Family Medicine; Visit Provider Surgery
DX: Z01.818 Encounter for other preprocedural examination (principal); K80.10 Calculus of gallbladder with chronic cholecystitis without obstruction
CPT/HCPCS: 36415; 82150; 86850; 86900; 86901

== ENCOUNTER → 2021-02-24 00:08 | Outpatient (CLI) | payer OTHER, SELFPAY ==
[2021-02-24 16:57] LABS: SARS-CoV-2 RNA PCR Negative
== END ==
PROVIDERS: PCP Family Medicine; Visit Provider Surgery
DX: Z01.812 Encounter for preprocedural laboratory examination (principal); Z20.822 Contact with and (suspected) exposure to COVID-19
CPT/HCPCS: C9803; U0003; U0005

== ENCOUNTER 2021-02-28 01:15 | Day surgery (SDC) | payer OTHER, SELFPAY ==
[2021-02-20 13:39] VITALS: BMI 51.7
[2021-02-28] VITALS (8 sets, daily range): BP systolic 125–152; BP diastolic 74–92; PULSE 73–80; RESP 13–20; TEMP 36.2–36.8; O2SAT 96–98
[2021-02-28] MEDS: ACETAMINOPHEN 500 MG TABLET 1000 MG PO (12:58)
--- NOTE | 2021-02-28 13:05 | WPDANESEPPF ---
Anes - Initial Pre Proc Eval Procedure: Operation Date: 02/28/21 14:30 Proposed Procedures p Laparoscopic Cholecystectomy - Ebony Pitt MD Date/Time: 02/28/21 13:05 Surgeon: Ebony Pitt MD Pre Op Diagnosis: cholecystitis with stone Patient Data Age: 45 Gender: F Height: 1.68 m Weight: 145.45 kg Allergies Allergy/AdvReac Type Severity Reaction Status Date / Time No Known Allergies Allergy Verified 02/28/21 12:46 Home Medications Medication Instructions Recorded Confirmed Type levonorgestrel 20 mcg/24 hours (6 1 device I-UTERINE ONCE 08/02/19 02/20/21 History yrs) 52 mg intrauterine device vitamin B complex [B 1 tablet PO DAILY 10/20/19 02/28/21 History Complex-Vitamin B12] spironolactone 25 mg tablet 25 mg PO DAILY 08/29/20 02/28/21 History irbesartan 300 mg tablet 300 mg PO DAILY #90 tablet 11/03/20 02/28/21 Rx hydrochlorothiazide 25 mg tablet 25 mg PO QAM #30 tablet 11/23/20 02/28/21 Rx verapamil 240 mg 24 hr 240 mg PO DAILY #90 cap 12/26/20 02/28/21 Rx capsule,extended release paroxetine HCl 20 mg tablet 40 mg PO DAILY #60 tablet 02/15/21 02/28/21 Rx fexofenadine [Joana] 60 mg PO Q12H 02/20/21 02/28/21 History ibuprofen [Motrin] 800 mg PO BID 02/20/21 02/28/21 History lorazepam 0.5 mg PO PRN PRN 02/20/21 02/28/21 History metoprolol tartrate 50 mg tablet 50 mg PO Q12H #60 tablet 02/26/21 02/28/21 Rx Patient hx anesthesia problems: none Family hx anesthesia problems: none PMFSH Past Medical History Medical History Anxiety Bilateral lower extremity edema Essential hypertension Headache History of anxiety History of depression History of hypertension History of sleep apnea Myalgia Nasal sore RLL pneumonia RLQ abdominal pain Surgical History Surgical History History of exploratory laparotomy History of gastric bypass Family History Family History Father Diabetes mellitus Hypertension Family history of malignant neoplasm Mother Diabetes mellitus Hypertension Family history of malignant neoplasm Other Family history of arthritis Social History Social History Years smoked: 30 Smoking status: Light tobacco smoker Tobacco type: cigarettes Second hand tobacco smoke exposure: No Smoking end date: 09/01/09 Additional smoking assessment comments: 3 cigarettes x30 years Alcohol intake: current Drinks per week: 4 Substance use: never Substance use type: does not use Living arrangements: with family 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 Questions were solicited and answers provided to the satisfaction of the patient/family/POA.
[2021-02-28] MEDS: LACTATED RINGERS 1,000 ML 30 ML IV CONT ×2 (13:25→15:51)
[2021-02-28] MEDS: KETOROLAC 15 MG/ML VIAL (*BKC) IV PUSH (13:29)
--- NOTE | 2021-02-28 13:53 | WPDHPUPDATE1 ---
History and Physical Update Update Date/Time: 02/28/21 13:53 History and Physical has been reviewed, including an updated exam of the patient. There are NO changes in the patient's condition. Risks, benefits, and alternatives have been discussed and questions answered. Patient agrees to proceed with procedure.
[2021-02-28] MEDS: ceFAZolin 3 GM/D5W 100 ML 100 ML IVPB (14:11)
[2021-02-28] MEDS: BUPIVACAINE/EPINEPHRINE 0.5% 10 ML VIAL 30 ML INFILTRATE (14:40)
--- NOTE | 2021-02-28 14:58 | W.PM.PROC2 ---
Procedure Note - Detailed Date of Procedure 02/28/21 Pre-op Diagnosis cholecystitis with cholelithiasis Post-op Diagnosis same Procedure Performed Laparoscopic cholecystectomy Surgeon Ebony Pitt MD Anesthesia general Indications 45-year-old female presented to the office complaining of postprandial right upper quadrant abdominal pain associated with nausea and vomiting. Workup including imaging significant for cholecystitis, cholelithiasis. Findings Cholecystitis with cholelithiasis Description of Procedure The patient was taken to the operating room placed in the supine position. After adequate induction of general anesthesia, the patient was prepped and draped in normal sterile fashion. A time-out was then performed to verify the patient's identity as well as the procedure being performed. I then made a 5 mm incision in the infraumbilical region. Through this, a Veress needle was placed into the peritoneal cavity and CO2 gas was then insufflated. After adequate pneumoperitoneum was achieved, the Veress needle was removed and a 5 mm optiview trocar was placed through this incision under direct visualization. I then placed the laparoscope through this trocar site and under direct visualization placed a further 12 mm subxiphoid port as well as 2 additional 5 mm ports in the right upper abdomen. The gallbladder was then identified and was noted to be moderately inflamed, distended, and noted to have impacted stone at neck of gallbladder. I was able to place a grasper at the dome of the gallbladder and this was retracted anterior and cephalad up over the liver. A 2nd retractor was then placed at the infundibulum and retracted laterally, this allowed visualization of the triangle of Calot. I then was able to visualize the cystic duct in its entirety from its proximal insertion into the gallbladder, to its distal junction with the common hepatic/common bile duct junction. At this point, I carefully skeletonized the proximal cystic duct with the [place] dissector. I then clipped and transected the proximal cystic duct. Next I visualized the cystic artery. Again the artery was skeletonized, clipped, and transected. I then used the Bovie cautery to take down the peritoneal attachments of the gallbladder off the liver bed. This was somewhat difficult given the amount of inflammation in the posterior space. Once the gallbladder specimen was completely detached, an endo-pouch was placed through the 12 mm port site. I then placed the gallbladder specimen into the Endo pouch and removed the endo-pouch from the 12 mm port site. The specimen will now be sent to pathology for further review. I then copiously irrigated the right upper quadrant. Hemostasis was noted in the liver bed, the clips were noted to be in good position on both the cystic duct stump and the cystic artery stump. No other pathology was noted in the right upper quadrant. I then moved the laparoscope to the subxiphoid port. No iatrogenic injury or other pathology was noted in the lower abdomen. I then closed the 12 mm trocar site under direct visualization using the Talon cone and 0 Vicryl suture. At this point, the abdomen was desufflated and all ports removed. All port sites were then closed with 4.O Monocryl subcuticular sutures. Dermabond was placed on each incision. The patient tolerated the procedure well, was extubated in the operating room postoperative and will be transferred to the recovery room in stable condition Estimated Blood Loss 5 Drains No Packing No Pathology yes Complications No immediate complications Condition stable Disposition PACU
== END 2021-02-28 17:07 | disposition home or self-care (01) ==
PROVIDERS: PCP Family Medicine; Visit Provider Surgery
PROC: 0FT44ZZ Resection of Gallbladder, Percutaneous Endoscopic Approach (ICD-10-PCS; CPT 47562; principal; 2021-02-28 14:30)
DX: K80.10 Calculus of gallbladder with chronic cholecystitis without obstruction (principal); I10 Essential (primary) hypertension; F41.9 Anxiety disorder, unspecified; Z98.84 Bariatric surgery status; Z87.891 Personal history of nicotine dependence; E66.01 Morbid (severe) obesity due to excess calories; Z68.43 Body mass index [BMI] 50.0-59.9, adult
CPT/HCPCS: 47562; 36415; 82150; 86850; 86900; 86901; 88304; A9270; C9803; J0690; J1885; J2250; J3010; J7030; J7120; U0003; U0005

== ENCOUNTER → 2021-04-28 01:11 | Outpatient (CLI) | payer OTHER, SELFPAY ==
[2021-04-28 22:45] LABS: SARS-CoV-2 RNA PCR Negative
== END ==
PROVIDERS: PCP Family Medicine; Visit Provider Nurse Practitioner Family
DX: Z20.822 Contact with and (suspected) exposure to COVID-19 (principal)
CPT/HCPCS: C9803; U0003; U0005

== ENCOUNTER 2021-07-16 14:03 | Outpatient (CLI) | payer OTHER, SELFPAY ==
--- NOTE | ~2021-07-16 | XR_ITS ---
EXAMINATION:XR_[id number]_CR DATE: 07/16/2021 14:18 INDICATION: Cervicalgia with left-sided neck pain TECHNIQUE: AP, lateral, lateral swimmers and odontoid views of the cervical spine are provided. COMPARISON: None FINDINGS: Straightening of the normal cervical lordosis. No spondylolisthesis or facet subluxation. Odontoid is intact. Normal atlantoaxial interval. Vertebral body heights are normal. Disc spaces are normal. Mu ltilevel mild bilateral facet and uncovertebral osteoarthritis. Prevertebral soft tissues are normal. IMPRESSION: 1. Straightening of the normal cervical lordosis which could be positional or secondary to muscle spa sm. 2. Multilevel mild bilateral cervical facet and uncovertebral osteoarthritis. Reviewed, dictated and finalized at location A. N HANDLER IMPRESSION: 1. Straightening of the normal cervical lordosis which could be positional or s econdary to muscle spasm. 2. Multilevel mild bilateral cervical facet and uncovertebral osteoarthritis.
== END 2021-07-16 14:04 | disposition home or self-care (01) ==
LOC: ANHIMG 14:04
PROVIDERS: PCP Family Medicine; Visit Provider Nurse Practitioner Family
DX: M54.2 Cervicalgia (principal); M53.82 Other specified dorsopathies, cervical region; M85.88 Other specified disorders of bone density and structure, other site
CPT/HCPCS: 72040

== ENCOUNTER 2021-08-29 13:12 | Outpatient (CLI) | payer OTHER, SELFPAY ==
[2021-08-29 13:41] LABS: Basophils Absolute Auto 0.1 K/mm3 (0.0-0.1); Basophils Percent Auto 0.9 % (0.2-1.2); Eosinophils Absolute Auto 0.3 K/mm3 (0-0.3); Eosinophils Percent Auto 2.7 % (0-4.4); Hematocrit 40.4 % (37.0-47.0); Hemoglobin 13.1 g/dL (12.0-15.0); Immature Granulocyte Absolute 0.03 K/mm3 (0.00-0.031); Immature Granulocyte Percent A 0.3 % (0-0.5); Lymphocytes Absolute Auto 2.08 K/mm3 (0.9-3.2); Lymphocytes Percent Auto 22.3 % (18.3-44.2); Mean Corpuscular HGB Conc 32.4 g/dl (32-36); Mean Corpuscular Hemoglobin 30.1 pg (26-34); Mean Corpuscular Volume 92.9 fl (80-100); Mean Platelet Volume 9.9 fl (7.4-10.4); Monocytes Absolute Auto 0.5 K/mm3 (0.1-0.6); Monocytes Percent Auto 5.7 % (2.6-8.5); Neutrophils Absolute Auto 6.4 K/mm3 (1.3-6.7); Neutrophils Percent Auto 68.1 % (45.5-73.1); Platelet Count Result 244 k/mm3 (150-375); Red Blood Count 4.35 M/mm3 (4.2-5.4); Red Cell Distribution Width 12.7 % (11.5-14.5); White Blood Count 9.3 K/mm3 (4.5-10.0)
[2021-08-29 13:58] LABS: Alanine Aminotransferase 31 U/L (4-35); Albumin Level 4.3 g/dL (3.5-5.1); Alkaline Phosphatase 120 U/L (38-126); Anion Gap 8 mmol/L (8-16); Aspartate Amino Transferase 30 U/L (14-36); Bilirubin,Total 0.5 mg/dL (0.2-1.3); Blood Urea Nitrogen 16 mg/dL (7-17); Carbon Dioxide 26 mmol/L (22-30); Chloride 102 mmol/L (98-107); Cholesterol 147 mg/dL (0-200); Estimated Glomerular Filt Rate > 60; Glucose 120 mg/dL (65-110); HDL Direct 45 mg/dL; Potassium 4.7 mmol/L (3.4-5.0); Sodium 136 mmol/L (137-145); Triglycerides 118 mg/dL (<150)
[2021-08-29 14:09] LABS: Hemoglobin A1C 6.1 % (<5.7); LDL Cholesterol Direct 75 mg/dL
== END 2021-08-29 13:13 | disposition home or self-care (01) ==
LOC: ANHLAB 13:13
PROVIDERS: PCP Family Medicine; Visit Provider Nurse Practitioner Family
DX: R73.01 Impaired fasting glucose (principal); I10 Essential (primary) hypertension; N39.0 Urinary tract infection, site not specified; R73.03 Prediabetes; E78.5 Hyperlipidemia, unspecified; Z00.00 Encounter for general adult medical examination without abnormal findings
CPT/HCPCS: 36415; 80053; 80061; 83036; 84443; 85025

== ENCOUNTER → 2021-09-14 00:55 | Outpatient (CLI) | payer OTHER, SELFPAY ==
[2021-09-15 23:20] LABS: SARS-CoV-2 RNA PCR Positive
== END ==
PROVIDERS: PCP Family Medicine; Visit Provider Family Medicine
DX: U07.1 COVID-19 (principal); R05.9 Cough, unspecified
CPT/HCPCS: C9803; U0003; U0005

== ENCOUNTER 2021-10-10 10:23 | Outpatient (CLI) | payer OTHER, SELFPAY ==
--- NOTE | ~2021-10-10 | CT_ITS ---
EXAMINATION: CT abdomen pelvis w con DATE: 10/10/2021 11:04 INDICATION: Periumbilical abdominal pain TECHNIQUE: Computed tomography (CT) of the abdomen and pelvis was performed with 100 cc Omnipaque 350 intravenous contrast. Automated exposure control and iterative reconstruction technique were employe d. Exam dose: 1599.30 mGy-cm total exam DLP. COMPARISON: 02/06/2021 Limited abdominal ultrasound examination October 20, 2019 CT abdomen pelvis FINDINGS: The lung bases are clear of infiltrate or consolidation. Normal heart size. No pericardial or pleural effusion. Small sliding hiatal hernia. Status post gastric sleeve gastrectomy. Status post cholecystectomy. No hepatic, splenic, pancreatic space-occupying mass lesion. 1.5 cm probable right adrenal adenoma; the adrenal glands are otherwise unremarkable. 3 cm left renal cyst. The kidneys are otherwise unremarkable. No urinary tract calculus or hydrourete ronephrosis. Normal caliber of the abdominal aorta. No intraperitoneal or retroperitoneal or pelvic mass lesion or adenopathy or ascites is detected. An IUD is noted in the uterus. Adnexal areas are unremarkable. The urinary bladder is unremarkable. No evidence of appendicitis. Mild colonic diverticulosis; no CT evidence of diverticulitis. No bowel obstruction, bowel wall thickening, pneumatosis or intraperitoneal free air. Diffuse idiopathic skeletal hyperostosis of the thoracic spine. No suspicious osteolytic or osteoblas tic lesions. IMPRESSION: Small sliding hiatal hernia Status post gastric sleeve gastrectomy Status post cholecystectomy 1.5 cm probable right adrenal adenoma 3 cm left renal cyst Mild colonic diverticulosis; no CT evidence of diverticulitis IUD within uterus Reviewed, dictated and finalized at Location A. Reviewed, dictated and finalized at location A. CLING MANAGER
[2021-10-10 11:02] LABS: Estimated Glomerular Filt Rate > 60
== END 2021-10-10 10:24 | disposition home or self-care (01) ==
LOC: ANHIMG 10:25
PROVIDERS: PCP Family Medicine; Visit Provider Nurse Practitioner Family
DX: R10.33 Periumbilical pain (principal); K44.9 Diaphragmatic hernia without obstruction or gangrene; Z98.84 Bariatric surgery status; Z90.49 Acquired absence of other specified parts of digestive tract; D35.01 Benign neoplasm of right adrenal gland; N28.1 Cyst of kidney, acquired; K57.90 Diverticulosis of intestine, part unspecified, without perforation or abscess without bleeding; Z97.5 Presence of (intrauterine) contraceptive device
CPT/HCPCS: 74177; Q9967

== ENCOUNTER 2021-11-11 22:49 | Emergency (ER) | payer OTHER, SELFPAY ==
--- NOTE | ~2021-11-11 | CT_ITS ---
EXAMINATION: CTA chest PE protocol DATE: 11/12/2021 01:45 INDICATION: Chest pain. Tachycardia. Left lower limb pain. TECHNIQUE: Computed tomography (CT) pulmonary angiogram of the chest was performed with 100 mL Omnipa que-350 intravenous contrast. Additional 3D reconstructions utilizing coronal maximum intensity proje ction (MIP) were performed. Automated exposure control and iterative reconstruction technique were em ployed. The dose-length product was 949.76 mGy-cm. COMPARISON: 05/19/2015 FINDINGS: Excellent contrast opacification of the pulmonary arteries. There is mild streak artifact from dense contrast in the superior vena cava and right atrium. Mild scattered respiratory motion artifact which does not significantly limit evaluation. No pulmonary embolism. No pneumonia, pulmonary edema, pleur al effusion or pneumothorax. Heart size is normal. No pericardial effusion. Small sliding-type hiatal hernia with sleeve gastrectomy. Thoracic aorta is normal in caliber with no dissection. No pathologi christine enlarged thoracic lymphadenopathy. 3.1 cm cyst at the upper pole the left kidney. Cholecystecto my clips at the gallbladder fossa. 1.8 cm right adrenal adenoma with typical low-attenuation on the p rior CT at which time it measured 1.3 cm. Moderate thoracic spondylosis. IMPRESSION: 1. No pulmonary embolism or other acute cardiopulmonary disease. 2. Small sliding-type hiatal hernia. Reviewed, dictated and finalized at location A.
--- NOTE | ~2021-11-11 | XR_ITS ---
EXAMINATION: XR knee LT 3V DATE: 11/12/2021 00:04 INDICATION: Left knee pain. TECHNIQUE: 3 views of left knee were obtained. COMPARISON: None. FINDINGS: Bone alignment is normal. No fracture. There is mild osteoarthritis of medial and patellofe moral compartments. There is a small knee joint effusion. IMPRESSION: 1. Mild left knee osteoarthritis. 2. Small left knee joint effusion. Reviewed, dictated and finalized at location A.
[2021-11-11 22:51] VITALS: BP 188/113; PULSE 130; RESP 20; TEMP 35.5; O2SAT 99
[2021-11-11 23:39] VITALS: PULSE 80; RESP 20; O2SAT 100
--- NOTE | 2021-11-11 23:41 | ECG_ITS ---
Measurements Intervals [place] Rate: 78 P: 43 AR: 147 QRS: 40 QRSD: 98 T: 28 QT: 369 QTc: 421 Interpretive Statements SINUS RHYTHM NORMAL ECG COMPARED TO ECG 02/11/2021 20:21:51 NO SIGNIFICANT CHANGES Electronically Signed On 11-12-2021 14:16:36 CDT by Shar Llanos M.D.
[2021-11-11 23:43] VITALS: RESP 20
--- NOTE | 2021-11-12 00:12 | ED.GENADULT ---
HPI - General Adult General Chief complaint: Extremity Problem,Nontraumatic Stated complaint: left knee pain Time Seen by Provider: 11/11/21 23:29 History of Present Illness HPI narrative: Patient is a 46-year-old female that presents to emergency department with chief complaint of left lower extremity pain. Patient reports several days ago started having pain behind the left knee patient states that the pain then started around to the patellar area and states whenever she puts pressure on it or tries to ambulate it hurts worse. Patient states that she then noticed some chest discomfort earlier this evening and reports that she has felt as her hearts been getting a little fast. The patient states that she is unable to get comfortable with her left knee and reports that that is her primary complaint. Patient states that she has no prior history of blood clots no prior history of pulmonary embolism. Related Data Home Medications Medication Instructions Recorded Confirmed levonorgestrel 20 mcg/24 hours (7 1 device I-UTERINE ONCE 08/02/19 07/02/21 yrs) 52 mg intrauterine device vitamin B complex [B 1 tablet PO DAILY 10/20/19 07/02/21 Complex-Vitamin B12] spironolactone 25 mg tablet 25 mg PO DAILY 08/29/20 07/02/21 ibuprofen 800 mg PO BID PRN 02/20/21 07/02/21 nystatin 1 applic TOPICAL BID PRN 11/11/21 paroxetine HCl 60 mg PO DAILY 11/11/21 Allergies Allergy/AdvReac Type Severity Reaction Status Date / Time No Known Allergies Allergy Verified 11/02/21 10:55 Review of Systems Review of Systems: A 10 system review of systems was completed on the patient and is negative except for what is stated in the HPI. Nursing and ancillary documentation was reviewed. [facility] Past Medical History Medical History Anxiety Bilateral lower extremity edema Essential hypertension Headache History of anxiety History of depression History of hypertension History of sleep apnea Myalgia Nasal sore RLL pneumonia RLQ abdominal pain Surgical History Surgical History History of exploratory laparotomy History of gastric bypass Family History Family History Father Diabetes mellitus Hypertension Family history of malignant neoplasm Mother Diabetes mellitus Hypertension Family history of malignant neoplasm Other Family history of arthritis Social History Social History Years smoked: 30 Smoking status: Former smoker Tobacco type: cigarettes Second hand tobacco smoke exposure: No Smoking end date: 09/01/09 Additional smoking assessment comments: 3 cigarettes x30 years Alcohol intake: current Drinks per week: 4 Substance use: never Substance use type: does not use Additional occupation/education comments: [employer] Gender identity (if verbalized by the patient): Female Sexual Orientation (if Verbalized by the Patient): Straight or Heterosexual Spiritual care concerns: No Exam Narrative: GENERAL: Well-appearing, well-nourished, and in no acute distress. HEAD: Normocephalic, atraumatic. EYES: PERRLA and EOMI. ENT: Nares clear, no rhinorrhea or epistaxis. Mucous membranes moist. NECK: Supple. CHEST: Clear to auscultation. No respiratory distress. HEART: Tachycardic rate and rhythm. No murmur heard. Normal peripheral pulses. ABDOMEN: Soft, nontender, nondistended, normal active bowel sounds. EXTREMITIES: Normal range of motion. No edema. Tenderness to palpation in the left knee SKIN: Warm, dry, no rash. NEURO: No focal deficits. Alert and oriented x3. PSYCH: Normal mood and affect. Course Vital Signs Vital signs: Vital Signs Temperature 35.5 C L 11/11/21 22:51 Pulse Rate 130 H 11/11/21 22:51 Respiratory Rate 20 11/11/21 22:51
[2021-11-12 00:27] LABS: Alanine Aminotransferase 21 U/L (4-35); Albumin Level 4.1 g/dL (3.5-5.1); Alkaline Phosphatase 117 U/L (38-126); Anion Gap 8 mmol/L (8-16); Aspartate Amino Transferase 26 U/L (14-36); Bilirubin,Total 0.4 mg/dL (0.2-1.3); Blood Urea Nitrogen 19 mg/dL (7-17); Calcium 8.6 mg/dL (8.4-10.2); Carbon Dioxide 23 mmol/L (22-30); Chloride 103 mmol/L (98-107); Estimated CRCL calculation 106 ml/min; Estimated Glomerular Filt Rate > 60; Glucose 106 mg/dL (65-110); Sodium 134 mmol/L (137-145)
[2021-11-12] MEDS: MORPHINE SULFATE (*CRX) 4 MG/ML INJ IV PUSH (00:38)
[2021-11-12 00:39] LABS: NT Pro B Type Natriuretic Pept 293 pg/mL (5-100); Troponin I < 0.012 ng/mL (0.000-0.034)
[2021-11-12] MEDS: ONDANSETRON INJ 4 MG/2 ML VIAL IV PUSH (00:39)
[2021-11-12 00:51] VITALS: BP 141/87; PULSE 78; RESP 18; O2SAT 99
[2021-11-12 00:56] LABS: Lactic Acid Reflex 1.4 mmol/L (0.7-2.1)
[2021-11-12 00:59] LABS: INR 1.1; Prothrombin Time 13.6 Seconds (11.1-14.7)
[2021-11-12 01:00] LABS: Partial Thromboplastin Time 29.6 SECONDS (22.3-36.8)
[2021-11-12 01:05] LABS: Add Urine Microscopic? NO; Appearance Urine Clear (Clear); Bilirubin Urine Negative (Negative); Blood Urine Negative (Negative); Color Urine Straw (Yellow); Glucose Urine UA Negative (Negative); Ketones Urine Negative (Negative); Leukocyte Esterase Ur Negative LEU/UL (Negative); Nitrate Urine Negative (Negative); Protein Urine Negative (Negative); Specific Grav Ur 1.016 (1.001-1.035); Urobilinogen Urine Negative mg/dL (<2.0)
[2021-11-12 01:13] LABS: Basophils Absolute Auto 0.1 K/mm3 (0.0-0.1); Basophils Percent Auto 0.8 % (0.2-1.2); Eosinophils Absolute Auto 0.2 K/mm3 (0-0.3); Eosinophils Percent Auto 2.5 % (0-4.4); Hematocrit 38.2 % (37.0-47.0); Hemoglobin 12.3 g/dL (12.0-15.0); Immature Granulocyte Absolute 0.02 K/mm3 (0.00-0.031); Immature Granulocyte Percent A 0.2 % (0-0.5); Lymphocytes Absolute Auto 2.28 K/mm3 (0.9-3.2); Mean Corpuscular HGB Conc 32.2 g/dl (32-36); Mean Corpuscular Hemoglobin 30.1 pg (26-34); Mean Corpuscular Volume 93.4 fl (80-100); Monocytes Absolute Auto 0.5 K/mm3 (0.1-0.6); Monocytes Percent Auto 5.7 % (2.6-8.5); Neutrophils Percent Auto 65.8 % (45.5-73.1); Platelet Count Result 234 k/mm3 (150-375); Red Blood Count 4.09 M/mm3 (4.2-5.4); Red Cell Distribution Width 13.5 % (11.5-14.5); White Blood Count 9.1 K/mm3 (4.5-10.0)
[2021-11-12 02:00] VITALS: BP 159/100; PULSE 84; RESP 20; O2SAT 98
[2021-11-12 03:51] LABS: Troponin I < 0.012 ng/mL (0.000-0.034)
[2021-11-12 04:18] VITALS: BP 148/84; PULSE 80; RESP 18; O2SAT 98
== END 2021-11-12 04:24 | disposition home or self-care (01) ==
PROVIDERS: Emergency Provider Emergency Medicine; PCP Family Medicine
DX: M25.562 Pain in left knee (principal); R07.89 Other chest pain; I10 Essential (primary) hypertension; G47.30 Sleep apnea, unspecified; Z87.01 Personal history of pneumonia (recurrent); Z98.84 Bariatric surgery status; Z87.891 Personal history of nicotine dependence; M17.12 Unilateral primary osteoarthritis, left knee
CPT/HCPCS: 36415; 71275; 73562; 80053; 81003; 81025; 83605; 83880; 84484; 85025; 85610; 85730; 93005; 96374; 96375; 99284; J2270; J2405; Q9967

== ENCOUNTER 2021-11-12 12:33 | Outpatient (CLI) | payer OTHER, SELFPAY ==
--- NOTE | ~2021-11-12 | US_ITS ---
EXAMINATION:US venous doppler LE LT INDICATION:Left leg pain TECHNIQUE: Multiple grayscale, color flow and Doppler images of the left lower extremity deep venous systems were obtained and reviewed. COMPARISON:No prior studies for comparison. FINDINGS: The common femoral, superficial femoral and popliteal veins demonstrate normal respiratory variation, augmentation and compressibility. Color flow is also seen within the posterior tibial, pe roneal, greater saphenous and profunda veins. There is a Chowdhury's cyst measuring 5.8 x 3 x 1.8 cm. IMPRESSION: 1: No lower extremity deep venous thrombosis. Reviewed, dictated and finalized at location B.
== END 2021-11-12 12:34 | disposition home or self-care (01) ==
PROVIDERS: PCP Family Medicine; Referring Provider Emergency Medicine; Visit Provider Family Medicine
DX: M79.89 Other specified soft tissue disorders (principal)
CPT/HCPCS: 93971

== ENCOUNTER 2022-03-21 13:01 | Outpatient (CLI) | payer BC, SELFPAY ==
[2022-03-21 13:45] LABS: Alanine Aminotransferase 24 U/L (6-35); Albumin Level 4.2 g/dL (3.5-5.1); Alkaline Phosphatase 109 U/L (38-126); Anion Gap 9 mmol/L (8-16); Aspartate Amino Transferase 22 U/L (14-36); Bilirubin,Total 0.5 mg/dL (0.2-1.3); Blood Urea Nitrogen 17 mg/dL (7-17); Calcium 9.1 mg/dL (8.4-10.2); Carbon Dioxide 25 mmol/L (22-30); Chloride 102 mmol/L (98-107); Estimated Glomerular Filt Rate > 60; Glucose 80 mg/dL (65-110); Potassium 4.2 mmol/L (3.4-5.0); Sodium 136 mmol/L (137-145)
== END 2022-03-21 13:02 | disposition home or self-care (01) ==
LOC: ANHLAB 13:04
PROVIDERS: PCP Family Medicine; Visit Provider Nurse Practitioner Family
DX: I10 Essential (primary) hypertension (principal)
CPT/HCPCS: 36415; 80053

== ENCOUNTER 2022-06-27 11:58 | Outpatient (CLI) | payer BC, SELFPAY ==
--- NOTE | ~2022-06-27 | CT_ITS ---
EXAMINATION: CT abdomen pelvis wo con DATE: 06/27/2022 12:23 INDICATION: Hematuria. Left-sided flank pain. History of stones. TECHNIQUE: Computed tomography (CT) of the abdomen and pelvis was performed without intravenous contr ast. The dose-length product was 1192.21 mGy-cm. Automated exposure control and iterative reconstruct ion technique were employed. COMPARISON: CT dated 10/10/2020 FINDINGS: The lung bases are unremarkable. Heart size normal. No significant pleural or pericardial e ffusion. There are changes of gastric bypass surgery and cholecystectomy. There is an IUD present. Th e liver, spleen, pancreas, left adrenal gland are unremarkable. There is a stable 1.4 cm right adrena l nodule. There is a 3 cm left renal cyst. No renal stones or hydronephrosis. Bladder is unremarkable . No ureteral stones. No abnormal pelvic masses or fluid collections. Colonic diverticulosis without evidence for diverticulitis. There is moderate lower thoracic and lumbar spondylosis. IMPRESSION: 1. No acute abdominal abnormality. 2: Stable 1.4 cm right adrenal mass, most likely benign adenoma. Reviewed, dictated and finalized at location B.
== END 2022-06-27 11:59 | disposition home or self-care (01) ==
PROVIDERS: PCP Family Medicine; Visit Provider Nurse Practitioner Family
DX: R31.9 Hematuria, unspecified (principal); R10.9 Unspecified abdominal pain; E27.9 Disorder of adrenal gland, unspecified
CPT/HCPCS: 74176

== ENCOUNTER 2022-09-03 12:05 | Emergency (ER) | payer BC, SELFPAY ==
[2022-09-03 12:16] VITALS: BP 159/110; PULSE 81; RESP 16; TEMP 36.4; O2SAT 98
--- NOTE | 2022-09-03 12:19 | ED.URI ---
HPI - URI/Sore Throat General Chief Complaint: Upper Respiratory Infection Stated Complaint: fever, chills, shortness, sore throat, headache Time Seen by Provider: 09/03/22 12:19 Source: patient, RN notes reviewed and old records reviewed Mode of arrival: ambulatory Limitations: no limitations History of Present Illness HPI Narrative: 47-year-old female presents to the [facility] with complaints of chills, fevers, sore throat, headache, body aches since Friday, 3 days. No treatment prior Intermittent shortness of breath. Related Data Home Medications Medication Instructions Recorded Confirmed levonorgestrel 20 mcg/24 hours (8 1 device intrauterine ONCE 08/02/19 09/03/22 yrs) 52 mg intrauterine device (Mirena) vitamin B complex (B 1 tablet PO DAILY 10/20/19 09/03/22 Complex-Vitamin B12 tablet) Allergies Allergy/AdvReac Type Severity Reaction Status Date / Time No Known Allergies Allergy Verified 09/03/22 12:14 Review of Systems Review of Systems: All systems reviewed & are unremarkable except as noted in HPI and below Constitutional: Constitutional: Reports as per HPI, Reports chills, Reports fatigue and Reports fever(s) Eyes: Eyes: Reports no additional eye complaints ENT: Reports as per HPI and Reports sore throat Cardiovascular: Cardiovascular: Reports no additional cardiovascular complaints, Denies chest pain and Denies dyspnea Respiratory: Respiratory: Reports as per HPI, Denies chest congestion, Denies cough and Reports dyspnea (Intermittent) Gastrointestinal: Gastrointestinal: Reports no additional gastrointestinal complaints, Denies abdominal pain, Denies nausea and Denies vomiting Musculoskeletal: Musculoskeletal: Reports no additional musculoskeletal complaints Integumentary/Breasts: Skin/Breast: Reports system reviewed and no additional complaints, except as docu Neurologic: Reports system reviewed and no additional complaints, except as documented Psychiatric: Psychiatric: Reports no additional psychiatric complaints Allergic/Immunologic: Allergic/Immunologic: Reports no additional allergic/immunologic complaints PMFSH Past Medical History Medical History Anxiety Bilateral lower extremity edema Essential hypertension Headache History of anxiety History of depression History of hypertension History of sleep apnea Left knee DJD Myalgia Nasal sore RLL pneumonia RLQ abdominal pain Surgical History Surgical History History of exploratory laparotomy History of gastric bypass Family History Family History Father Diabetes mellitus Hypertension Family history of malignant neoplasm Mother Diabetes mellitus Hypertension Family history of malignant neoplasm Other Family history of arthritis Social History Social History Years smoked: 30 Smoking status: Current some day smoker Tobacco type: cigarettes Second hand tobacco smoke exposure: No Smoking end date: 09/01/09 Additional smoking assessment comments: 3 cigarettes x30 years Alcohol intake: current Drinks per week: 4 Substance use: never Substance use type: does not use 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 There is no relevant family history pertinent to the patient complaint. Exam Const: General: cooperative, healthy appearing, comfortable, no acute distress, well developed, alert and well nourished Nutritional Appearance: well nourished and obese Orientation/cons
== END 2022-09-03 12:34 | disposition home or self-care (01) ==
PROVIDERS: Emergency Provider Nurse Practitioner; PCP Family Medicine
DX: U07.1 COVID-19 (principal); Z87.891 Personal history of nicotine dependence; I10 Essential (primary) hypertension; M17.12 Unilateral primary osteoarthritis, left knee; Z98.84 Bariatric surgery status
CPT/HCPCS: 87426; 87804; 99213; C9803; G0463

== ENCOUNTER → 2022-09-03 12:40 | Outpatient (CLI) | payer BC, SELFPAY ==
--- NOTE | ~2022-09-03 | XR_ITS ---
Clinical Indication: Covid 19 positive, cough PA and lateral views of the chest: Comparison: 02/11/2021 Findings: The lungs are clear, without evidence of focal consolidation or pleural effusion. Cardiome diastinal silhouette is within normal limits. Bones and soft tissues are unremarkable. Impression: Normal chest. Reviewed, dictated and finalized at location . [facility] Impression: Normal chest.
== END ==
PROVIDERS: PCP Nurse Practitioner Family; Visit Provider Nurse Practitioner Family
DX: R05.9 Cough, unspecified (principal); U07.1 COVID-19
CPT/HCPCS: 71046

== ENCOUNTER 2022-11-16 07:26 | Outpatient (CLI) | payer BC, SELFPAY ==
[2022-11-16 08:12] LABS: Appearance Urine Clear (Clear); Bilirubin Urine Negative (Negative); Blood Urine Negative (Negative); Color Urine Yellow (Yellow); Glucose Urine UA Negative (Negative); Ketones Urine Negative (Negative); Leukocyte Esterase Ur Negative LEU/UL (NEGATIVE); Nitrate Urine Negative (Negative); Protein Urine Negative (Negative); Specific Grav Ur 1.008 (1.001-1.035); Urobilinogen Urine 0.2 mg/dL (<2.0); pH Urine 5.5 (5.0-9.0)
[2022-11-16 08:17] LABS: Basophils Absolute Auto 0.1 K/mm3 (0.0-0.1); Basophils Percent Auto 0.8 % (0.2-1.2); Eosinophils Absolute Auto 0.3 K/mm3 (0-0.3); Eosinophils Percent Auto 2.7 % (0-4.4); Hematocrit 40.7 % (37.0-47.0); Hemoglobin 13.3 g/dL (12.0-15.0); Immature Granulocyte Absolute 0.05 K/mm3 (0.00-0.031); Immature Granulocyte Percent A 0.5 % (0-0.5); Lymphocytes Absolute Auto 2.47 K/mm3 (0.9-3.2); Lymphocytes Percent Auto 24.7 % (18.3-44.2); Mean Corpuscular HGB Conc 32.7 g/dl (32-36); Mean Corpuscular Hemoglobin 30.3 pg (26-34); Mean Corpuscular Volume 92.7 fl (80-100); Mean Platelet Volume 9.9 fl (7.4-10.4); Monocytes Absolute Auto 0.7 K/mm3 (0.1-0.6); Monocytes Percent Auto 6.5 % (2.6-8.5); Neutrophils Absolute Auto 6.5 K/mm3 (1.3-6.7); Neutrophils Percent Auto 64.8 % (45.5-73.1); Platelet Count Result 245 k/mm3 (150-375); Red Blood Count 4.39 M/mm3 (4.2-5.4); Red Cell Distribution Width 13.1 % (11.5-14.5)
[2022-11-16 08:18] LABS: Alanine Aminotransferase 29 U/L (6-35); Albumin Level 4.7 g/dL (3.5-5.1); Alkaline Phosphatase 130 U/L (38-126); Anion Gap 9 mmol/L (8-16); Aspartate Amino Transferase 29 U/L (14-36); Bilirubin,Total 0.6 mg/dL (0.2-1.3); Blood Urea Nitrogen 17 mg/dL (7-17); CRP 0.9 mg/dL (<1.0); Calcium 8.8 mg/dL (8.4-10.2); Carbon Dioxide 25 mmol/L (22-30); Chloride 101 mmol/L (98-107); Cholesterol 164 mg/dL (0-200); Estimated Glomerular Filt Rate > 60; Glucose 100 mg/dL (65-110); HDL Direct 50 mg/dL; Potassium 3.6 mmol/L (3.4-5.0); Rheumatoid Factor < 8.6 IU/ML (<12); Sodium 135 mmol/L (137-145); Triglycerides 91 mg/dL (<150)
[2022-11-16 08:28] LABS: LDL Cholesterol Direct 86 mg/dL
[2022-11-16 08:59] LABS: Add Urine Microscopic? NO
[2022-11-16 09:26] LABS: Folic Acid > 20.0 ng/mL (2.76->20)
[2022-11-16 11:35] LABS: Erythrocyte Sedimentation Rate 29 mm/hr (0-20)
== END 2022-11-16 07:27 | disposition home or self-care (01) ==
LOC: ANHLAB 07:27
PROVIDERS: PCP Family Medicine; Visit Provider Physician Assistant
DX: M79.10 Myalgia, unspecified site (principal); U07.1 COVID-19; I10 Essential (primary) hypertension; G47.33 Obstructive sleep apnea (adult) (pediatric); R53.1 Weakness; Z72.0 Tobacco use
CPT/HCPCS: 36415; 80053; 80061; 81003; 82607; 82746; 84443; 85025; 85652; 86038; 86140; 86430

== ENCOUNTER 2023-03-03 14:27 | Emergency (ER) | payer BC, SELFPAY ==
--- NOTE | ~2023-03-03 | XR_ITS ---
XR nasal bones min 3V DATE: 03/03/2023 14:52 INDICATION: Fall. Right nasal injury, pain TECHNIQUE: Left and right lateral and Toro views COMPARISON: None FINDINGS: There is a small subtle nondisplaced fracture at the tip of the nasal bones. The anterior maxillary spine is intact. IMPRESSION: Small nondisplaced fracture at the tip of the nasal bones Reviewed, dictated and finalized at location A.
[2023-03-03 14:33] VITALS: BP 146/92; PULSE 85; RESP 16; TEMP 36.4; O2SAT 98
--- NOTE | 2023-03-03 14:45 | ED.FALL ---
HPI - Fall General Chief Complaint: Fall Stated Complaint: FACIAL INJURIES Time Seen by Provider: 03/03/23 14:59 Source: patient and RN notes reviewed Mode of arrival: ambulatory Limitations: no limitations History of Present Illness HPI Narrative: 47-year-old female presents with concern for nasal pain, bruising after a fall. She reports yesterday she was trying to hold on to her dog when she fell and hit her face on the concrete. She reports she had bleeding nose at the time. She reports she has not use ice because it hurts to touch it. She reports she takes ibuprofen daily. She denies any vision changes or ongoing nose bleed. complaint: fall Related Data Home Medications Medication Instructions Recorded Confirmed levonorgestrel 21 mcg/24 hours (8 1 device intrauterine ONCE 08/02/19 03/03/23 yrs) 52 mg intrauterine device (Mirena) vitamin B complex (B 1 tablet PO DAILY 10/20/19 03/03/23 Complex-Vitamin B12 tablet) Allergies Allergy/AdvReac Type Severity Reaction Status Date / Time No Known Allergies Allergy Verified 03/03/23 14:40 Review of Systems Review of Systems: CONSTITUTIONAL: Denies malaise, chills, sweats, or fever. HEENT: Reports bruising around the right eye, bruising to the bridge of the nose, pain to the bridge of the nose CARDIOVASCULAR: Denies chest pain, palpitations, or edema. RESPIRATORY: Denies cough or dyspnea. SKIN: Denies rash or itching, bruising, redness, swelling. MUSCULOSKELETAL: Bruising to the knees NEUROLOGIC: Denies numbness, weakness All systems reviewed & are unremarkable except as noted in HPI and below [facility] Past Medical History Medical History Anxiety Bilateral lower extremity edema Essential hypertension Headache History of anxiety History of depression History of hypertension History of sleep apnea Left knee DJD Myalgia Nasal sore RLL pneumonia RLQ abdominal pain Surgical History Surgical History History of exploratory laparotomy History of gastric bypass Family History Family History Father Diabetes mellitus Hypertension Family history of malignant neoplasm Mother Diabetes mellitus Hypertension Family history of malignant neoplasm Other Family history of arthritis Social History Social History Years smoked: 30 Smoking status: Current some day smoker Tobacco type: cigarettes Second hand tobacco smoke exposure: No Smoking end date: 09/01/09 Additional smoking assessment comments: 3 cigarettes x30 years Alcohol intake: current Drinks per week: 4 Substance use: never Substance use type: does not use Living arrangements: with family Occupation/Education: occupation 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 There is no relevant family history pertinent to the presenting complaint Exam Narrative: GENERAL: Well-appearing, well-nourished, and in no acute distress. HEAD: Normocephalic, atraumatic. EYES: PERRLA, sclera clear, and EOMI. No nystagmus. Ecchymosis with mild edema noted to the right inner eyelid ENT: Nares clear, turbinates pink, no rhinorrhea or epistaxis, no septal hematoma visible. Mucous membranes moist. NECK: Supple. CHEST: No respiratory distress. Speaks in full sentences. HEART: Regular rate and rhythm. SKIN: Warm, dry, no visible rash. Ecchymosis noted to the left knee NEURO: Alert and oriented x3. PSYCH: Normal mood and affect Course Course Emergency Course: Patient is aware of diagnosis
== END 2023-03-03 15:16 | disposition home or self-care (01) ==
PROVIDERS: Emergency Provider Nurse Practitioner; PCP Family Medicine
DX: S02.2XXA Fracture of nasal bones, initial encounter for closed fracture (principal); W19.XXXA Unspecified fall, initial encounter; I10 Essential (primary) hypertension; M17.0 Bilateral primary osteoarthritis of knee; Z98.84 Bariatric surgery status; Z87.891 Personal history of nicotine dependence; F41.9 Anxiety disorder, unspecified; F32.A Depression, unspecified
CPT/HCPCS: 70160; 99213; G0463

== ENCOUNTER 2023-11-02 12:52 | Emergency (ER) | payer BC, SELFPAY ==
--- NOTE | ~2023-11-02 | XR_ITS ---
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 RESULT: Lines, tubes, and devices: None. Lungs and pleura: Clear. Cardiomediastinal silhouette: Stable. Other: No acute osseous or upper abdominal finding. IMPRESSION: No acute cardiopulmonary process. Reviewed, dictated and finalized at location K. 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
[2023-11-02 12:58] VITALS: BP 162/99; PULSE 87; RESP 16; TEMP 36.3; O2SAT 98
--- NOTE | 2023-11-02 13:49 | ED.URI ---
HPI - URI/Sore Throat General Chief Complaint: Upper Respiratory Infection Stated Complaint: Chest Congestion Time Seen by Provider: 11/02/23 13:30 Source: patient and RN notes reviewed Mode of arrival: ambulatory Limitations: no limitations History of Present Illness HPI Narrative: Patient presents today complaining of a 2-3 day history of sore throat, postnasal drip, headache, chest tightness and dry cough. She has tried no medication for symptoms prior to arrival. States she is currently pain-free. Denies history of asthma or COPD. Reports history of pneumonia. Related Data Home Medications Medication Instructions Recorded Confirmed levonorgestrel 21 mcg/24 hours (8 1 device intrauterine ONCE 08/02/19 11/02/23 yrs) 52 mg intrauterine device (Mirena) vitamin B complex (B 1 tablet PO DAILY 10/20/19 11/02/23 Complex-Vitamin B12 tablet) prasterone (dhea) 50 mg capsule 50 mg PO DAILY 03/31/23 11/02/23 (DHEA) Allergies Allergy/AdvReac Type Severity Reaction Status Date / Time No Known Allergies Allergy Verified 10/03/23 09:46 Review of Systems Review of Systems: CONSTITUTIONAL: Denies body aches, fever, chills, or sweats. EYES: Denies visual changes, redness, or discharge. ENT: Denies rhinorrhea, congestion, or otalgia.+ sore throat, postnasal drip CARDIOVASCULAR: Denies chest pain, palpitations, or edema. RESPIRATORY: + cough, chest tightness GASTROINTESTINAL: Denies abdominal pain, nausea, vomiting, or diarrhea. GENITOURINARY: Denies dysuria or hematuria. SKIN: Denies rash, itching, or wounds. MUSCULOSKELETAL: Denies back pain, joint pain, or myalgia. NEUROLOGIC: Denies numbness, tingling, or weakness.+ headache PSYCH: Denies depression or anxiety. [facility] Past Medical History Medical History Anxiety Bilateral lower extremity edema Essential hypertension Headache History of anxiety History of depression History of hypertension History of sleep apnea Left knee DJD Myalgia Nasal sore Right knee DJD RLL pneumonia RLQ abdominal pain Surgical History Surgical History History of exploratory laparotomy History of gastric bypass Family History Family History Father Diabetes mellitus Hypertension Family history of malignant neoplasm Mother Diabetes mellitus Hypertension Family history of malignant neoplasm Other Family history of arthritis Social History Social History Years smoked: 30 Smoking status: Current some day smoker Tobacco type: cigarettes Second hand tobacco smoke exposure: No Smoking end date: 09/01/09 Additional smoking assessment comments: 3 cigarettes x30 years Alcohol intake: current Drinks per week: 4 Substance use: never Substance use type: does not use Living arrangements: with family Occupation/Education: occupation 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 Please see nursing chart for further information. There is no relevant family history pertinent to the presenting complaint Exam Narrative: GENERAL: Well-appearing, well-nourished, and in no acute distress. HEAD: Normocephalic, atraumatic. EYES: EOMI. No redness or drainage. Conjunctivae normal. ENT: Mucous membranes pink and moist. Nares clear. No rhinorrhea. TMs normal bilaterally. Throat normal. Uvula midline. NECK: Normal AROM. Supple. No lymphadenopathy. CHEST: No respiratory distress. Clear to auscul
== END 2023-11-02 14:19 | disposition home or self-care (01) ==
PROVIDERS: Emergency Provider Nurse Practitioner; PCP Family Medicine
DX: J06.9 Acute upper respiratory infection, unspecified (principal); I10 Essential (primary) hypertension; F32.A Depression, unspecified; F41.9 Anxiety disorder, unspecified; F17.210 Nicotine dependence, cigarettes, uncomplicated; Z79.899 Other long term (current) drug therapy
CPT/HCPCS: 71046; 99213; G0463

== ENCOUNTER 2024-05-04 13:55 | Emergency (ER) | payer BC, SELFPAY ==
[2024-05-04 14:14] VITALS: BP 134/88; PULSE 89; RESP 16; TEMP 36.3; O2SAT 99
--- NOTE | 2024-05-08 08:44 | ED.GENADULT ---
HPI - General Adult General Chief complaint: Extremity Injury, Lower Stated complaint: LT Knee Pain Time Seen by Provider: 05/04/24 14:34 Source: patient, RN notes reviewed and old records reviewed Mode of arrival: ambulatory Limitations: no limitations History of Present Illness HPI narrative: 48-year-old female to [facility] complaint left knee pain status post fall going up some stairs yesterday. Patient reports that her left knee went out on while ambulating up some stairs at home. Patient states that left leg folded underneath her well right leg extended out in of her. Patient states left knee has been going out on her recently. Patient reports history osteoarthritis in left knee. Patient ambulates into [facility] with cane which she does not normally use. Patient denies prior injury, surgery, numbness, tingling, pain radiating into left lower extremity, allergies. Patient resting comfortably in exam room in no acute distress. Respirations even and nonlabored. Related Data Home Medications Medication Instructions Recorded Confirmed levonorgestrel 21 mcg/24 hr (up to 1 device intrauterine ONCE 08/02/19 05/05/24 8 years) 52 mg intrauterine device (Mirena) vitamin B complex (B 1 tablet PO DAILY 10/20/19 05/05/24 Complex-Vitamin B12 tablet) Allergies Allergy/AdvReac Type Severity Reaction Status Date / Time No Known Allergies Allergy Verified 05/05/24 07:59 Review of Systems Review of Systems: All systems reviewed & are unremarkable except as noted in HPI and below Constitutional: Constitutional: Reports no additional constitutional complaints Eyes: Eyes: Reports no additional eye complaints ENT: Reports system reviewed and no additional complaints, except as documented Cardiovascular: Cardiovascular: Reports no additional cardiovascular complaints, Denies chest pain and Denies dyspnea Respiratory: Respiratory: Reports no additional respiratory complaints, Denies cough and Denies dyspnea Musculoskeletal: Musculoskeletal: Reports as per HPI and Reports arthralgias ( left knee pain. Patient reports left knee gives out ) Neurologic: Reports system reviewed and no additional complaints, except as documented Psychiatric: Psychiatric: Reports no additional psychiatric complaints PMFSH Past Medical History Medical History Achilles tendinitis of left lower extremity Anxiety Bilateral lower extremity edema Essential hypertension Headache History of anxiety History of depression History of hypertension History of sleep apnea Left calcaneal bursitis Left knee DJD Myalgia Nasal sore Right knee DJD RLL pneumonia RLQ abdominal pain Surgical History Surgical History History of exploratory laparotomy History of gastric bypass Family History Family History Father Diabetes mellitus Hypertension Family history of malignant neoplasm Mother Diabetes mellitus Hypertension Family history of malignant neoplasm Other Family history of arthritis Social History Social History Years smoked: 30 Smoking status: Current some day smoker Tobacco type: cigarettes Second hand tobacco smoke exposure: No Smoking end date: 09/01/09 Additional smoking assessment comments: 3 cigarettes x30 years Alcohol intake: current Drinks per week: 4 Substance use: never Substance use type: does not use Living arrangements: with family Occupation/Education: occupation 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
== END 2024-05-04 15:56 | disposition home or self-care (01) ==
PROVIDERS: Emergency Provider Nurse Practitioner Family; PCP Family Medicine
DX: S83.92XA Sprain of unspecified site of left knee, initial encounter (principal); W10.9XXA Fall (on) (from) unspecified stairs and steps, initial encounter; I10 Essential (primary) hypertension; M17.0 Bilateral primary osteoarthritis of knee
CPT/HCPCS: 99212; G0463

== ENCOUNTER 2024-05-05 08:37 | Outpatient (CLI) | payer BC, SELFPAY ==
--- NOTE | ~2024-05-05 | XR_ITS ---
Left Knee Technique: AP, lateral, and sunrise views were obtained. Clinical History: Pain Findings: No fracture or dislocation is seen. Osseous alignment is anatomic. There is mild degenerati ve spurring of the proximal tibia and at the medial joint line. Soft tissues are unremarkable. No damari nt effusion is seen. Impression: Mild degenerative spurring, as above. Reviewed, dictated and finalized at location M. Impression: Mild degenerative spurring, as above.
== END 2024-05-05 08:38 | disposition home or self-care (01) ==
PROVIDERS: PCP Family Medicine; Visit Provider Family Medicine
DX: M25.762 Osteophyte, left knee (principal)
CPT/HCPCS: 73560

== ENCOUNTER 2024-05-11 13:35 | Outpatient (CLI) | payer BC, SELFPAY ==
--- NOTE | ~2024-05-11 | MR_ITS ---
EXAMINATION: MR knee LT wo con DATE: 05/11/2024 14:19 INDICATION: Left knee pain post recent injury TECHNIQUE: Magnetic resonance imaging (MRI) of the left knee was performed without intravenous contra st. Sequences included coronal PD-weighted FSE, coronal PD-weighted FS FSE, sagittal T2-weighted FSE , sagittal PD-weighted FS FSE and axial PD weighted fat saturated FSE. COMPARISON: None. FINDINGS: Medial compartment: The posterior horn of the medial meniscus is small with irregular margins and with increased signal a long the inner third consistent with likely complex tear with either displacement or secondary degene ration of the absent meniscal tissue. There is medial extrusion of the medial meniscal body with thic kening and increased signal of the inferior periphery of the meniscal which is subluxed caudal to the medial rim of the medial tibial plateau. The increased signal could be related to additional tear or mucoid degeneration. There is deep chondral ulceration along the anterior to central weightbearing m edial femoral condyle and medial side of the medial tibial plateau, bladder with mild underlying suba rticular edema-like signal change. Lateral compartment: Lateral meniscus is normal. Articular cartilage is normal. Patellofemoral compartment: Additional deep chondral ulceration with subarticular cystlike change at the lateral trochlea. Less s evere partial thickness chondral ulceration and fissuring at the trochlear groove and medial trochlea . There is also partial thickness chondral fissuring at the lateral patellar facet. Ligaments and tendons: Anterior and posterior cruciate ligaments are normal. The medial collateral ligament and fibular vianey ateral ligament complex are normal. The extensor mechanism is normal. The visualized medial and later al hamstring tendons as well as the iliotibial band are normal. Fluid: Physiologic amount of fluid in the joint space. No loose osteochondral bodies identified. Moderate si zed Chowdhury's cyst. Osseous/other: Bone alignment is normal. No fracture or pathologic marrow replacing process. IMPRESSION: 1. Likely chronic complex tear of the posterior horn of the medial meniscus with residual small irreg ular posterior horn suggesting this is chronic with secondary displacement or degeneration of the abs ent meniscal tissue. Additional tear versus degeneration of the medially extruded meniscal body. 2. 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 3. Mild patellofemoral osteoarthritis with additional moderate and high-grade chondromalacia. 4. Moderate-sized Chowdhury's cyst. Reviewed, dictated and finalized at location B. IMPRESSION: 1. Likely chronic complex tear of the posterior horn of the medial meniscus wit h residual small irregular posterior horn suggesting this is chronic with secon dillon displacement or degeneration of the absent meniscal tissue. Additional tea r versus degeneration of the medially extruded meniscal body. 2. Moderate osteoarthritis in medial compartment with extensive moderate and hi gh-grade chondromalacia. 3. Mild patellofemoral osteoarthritis with additional moderate and high-grade c hondromalacia. 4. Moderate-sized Chowdhury's cyst.
== END 2024-05-11 13:36 | disposition home or self-care (01) ==
LOC: GOSHIMG 13:36
PROVIDERS: PCP Orthopaedic Surgery; Visit Provider Family Medicine
DX: M17.12 Unilateral primary osteoarthritis, left knee (principal); M94.262 Chondromalacia, left knee; M71.22 Synovial cyst of popliteal space [Baker], left knee
CPT/HCPCS: 73721

== ENCOUNTER 2024-07-02 10:58 | Outpatient (CLI) | payer BC, SELFPAY ==
[2024-07-02 11:23] LABS: Hematocrit 41.6 % (37.0-47.0); Hemoglobin 14.2 g/dL (12.0-15.0); Mean Corpuscular HGB Conc 34.1 g/dl (32-36); Mean Corpuscular Hemoglobin 31.3 pg (26-34); Mean Corpuscular Volume 91.8 fl (80-100); Mean Platelet Volume 9.8 fl (7.4-10.4); Platelet Count Result 219 k/mm3 (150-375); Red Blood Count 4.53 M/mm3 (4.2-5.4); Red Cell Distribution Width 12.5 % (11.5-14.5); White Blood Count 6.6 K/mm3 (4.5-10.0)
[2024-07-02 11:35] LABS: Alanine Aminotransferase 42 U/L (6-35); Albumin Level 4.7 g/dL (3.5-5.1); Alkaline Phosphatase 115 U/L (38-126); Anion Gap 12 mmol/L (4-12); Aspartate Amino Transferase 46 U/L (14-36); Bilirubin,Total 0.9 mg/dL (0.2-1.3); Blood Urea Nitrogen 14 mg/dL (7-17); Carbon Dioxide 22 mmol/L (22-30); Chloride 100 mmol/L (98-107); Cholesterol 155 mg/dL (0-200); Estimated Glomerular Filt Rate > 60; Glucose 158 mg/dL (65-110); HDL Direct 53 mg/dL; Potassium 4.3 mmol/L (3.4-5.0); Sodium 134 mmol/L (137-145); Triglycerides 128 mg/dL (<150)
[2024-07-02 11:42] LABS: LDL Cholesterol Direct 75 mg/dL
[2024-07-02 11:58] LABS: Add Urine Microscopic? YES; Appearance Urine Turbid (Clear); Bacteria Urine 4+ /hpf; Bilirubin Urine Negative (Negative); Blood Urine 2+ (Negative); Color Urine Yellow (Yellow); Glucose Urine UA Negative (Negative); Hyaline Casts Urine Present /lpf; Ketones Urine Negative (Negative); Leukocyte Esterase Ur 2+ LEU/UL (Negative); Need Manual Microscopic Reviewed; Nitrate Urine Negative (Negative); Protein Urine 1+ mg/dL (Negative); RBC Urine >100 /hpf (0-2); Specific Grav Ur 1.016 (1.001-1.035); Squamous Epithelial Cell Urine Moderate /hpf (Few)
== END 2024-07-02 10:59 | disposition home or self-care (01) ==
LOC: ANHLAB 10:59
PROVIDERS: PCP Family Medicine; Visit Provider Family Medicine
DX: Z00.00 Encounter for general adult medical examination without abnormal findings (principal); E78.5 Hyperlipidemia, unspecified; I10 Essential (primary) hypertension; R53.83 Other fatigue
CPT/HCPCS: 36415; 80053; 80061; 81001; 83036; 84443; 85027

== ENCOUNTER 2024-07-17 09:51 | Outpatient (CLI) | payer BC, SELFPAY ==
[2024-07-17 10:42] LABS: Glucose 125 mg/dL (65-110)
== END 2024-07-17 09:52 | disposition home or self-care (01) ==
LOC: ANHLAB 09:51
PROVIDERS: PCP Family Medicine; Visit Provider Family Medicine
DX: R73.01 Impaired fasting glucose (principal)
CPT/HCPCS: 36415; 82947

== ENCOUNTER 2024-10-02 10:53 | Emergency (ER) | payer BC, SELFPAY ==
[2024-10-02 11:25] VITALS: BP 160/106; PULSE 105; RESP 16; TEMP 36.5; O2SAT 100
[2024-10-02 11:25] LABS: EDUAAPPEAR Clear; EDUABILI Negative (Negative); EDUABLOOD Negative (Negative); EDUACOLOR1 Yellow; EDUAGLUCOSE Negative (Negative); EDUAKETONE Negative (Negative); EDUALEUKO Negative (Negative); EDUANITRATE Negative (Negative); EDUAPROTEIN Negative (Negative); EDUASPGRAVITY 1.025; EDUAUROBILI 0.2
--- NOTE | 2024-10-02 11:28 | ED_ITS ---
HPI - URI/Sore Throat General Chief Complaint: Upper Respiratory Infection Stated Complaint: Flu Symptoms/Uti Symptoms Time Seen by Provider: 10/02/24 11:29 Source: patient Mode of arrival: ambulatory Limitations: no limitations History of Present Illness HPI Narrative: Sharona is a 49-year-old female patient presenting to the clinic today with complaints of nasal congestion and cough is been going on for a couple weeks. States that she developed nausea, vomiting, and diarrhea last night but has not had any symptoms this morning. [place] feverish last night but that check her temperature said she woke up in a pool of sweat this morning. Also reporting burning and stinging with urination with some right-sided low back pain. Recently had been placed on Macrobid and Cipro for UTI. MD elicited complaint: cough and nasal congestion Related Data Home Medications ?Medication ?Instructions ?Recorded ?Confirmed ?Last Taken ?Type levonorgestrel (Mirena) 1 device intrauterine ONCE 08/02/19 06/07/24 Unknown History vitamin B complex (B 1 tablet PO DAILY 10/20/19 06/07/24 02/24/21 History Complex-Vitamin B12 tablet) Allergies Allergy/AdvReac Type Severity Reaction Status Date / Time No Known Allergies Allergy Verified 10/02/24 11:20 Review of Systems Review of Systems: Pertinent positives per HPI. Patient denies any rash, headache, visual changes, dizziness, cough, shortness of breath, chest pain, palpitations, constipation, abdominal pain, PMFSH Past Medical History Medical History Morbid obesity Instability of both knee joints Achilles tendinitis of left lower extremity Left calcaneal bursitis Right knee DJD Left knee DJD Headache Nasal sore Bilateral lower extremity edema Essential hypertension Myalgia RLL pneumonia Anxiety RLQ abdominal pain History of anxiety History of depression History of sleep apnea History of hypertension Surgical History Surgical History History of exploratory laparotomy History of gastric bypass Family History Family History Father Diabetes mellitus Hypertension Family history of malignant neoplasm Mother Diabetes mellitus Hypertension Family history of malignant neoplasm Other Family history of arthritis Social History Social History (Updated 06/07/24 @ 14:54 by Olena Weiss) Years smoked: 30 Smoking status: Current some day smoker Tobacco type: cigarettes Second hand tobacco smoke exposure: No Smoking end date: 09/01/09 Additional smoking assessment comments: 3 cigarettes x30 years Alcohol intake: current Substance use: never Substance use type: does not use Do You Feel Safe in your Home?: Yes Lack of Transportation: No Lack of Food: Never True Current Housing: I Have Housing Concerned About Future Housing: No Difficulty Paying Gas/Electric Bills: No Difficulty Paying for Meds: No Currently Unemployed: No Education: Don't Know Difficulty w/ Childcare or Family Care: No Living arrangements: with family Occupation/Education: occupation 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 There is no relevant family history pertinent to the patient complaint. Exam Narrative: General: Well-developed, morbidly obese, in no apparent distress Head: Normocephalic, atraumatic Eyes: Pupils equally round and reactive to light bilaterally, EOM intact, sclera and conjunctive clear, no discharge, lids normal Ears: TMs intact and clear, ear canals clear, no drainage, grossly hearing normal. Nose: Nares patent, clear discharge, no inflammation, no sinus tenderness. Mouth: Oral pharynx red without lesions or masses, good dentition, MMM. Postnasal drip Neck: Supple, trachea midline, no enlargement of anterior or posterior cervical nodes, no thyroid masses or goiter palpable. Cardio: Regular rate and rhythm, s1 and s2 normal, no murmur appreciated. Resp: Clear to auscultation bilaterally, no rhonchi, rales, wheezing or rubs Abdomen: Soft, pliable, nondistended, nontender to palpation, bowel sounds present all 4 quadrants, no organomegaly, no CVAT tenderness Course Course Emergency Course: Portions of this record may have been created with voice recognition software. Level of Care: Express Care Visit Vital Signs Vital signs: Vital Signs Temperature 36.5 C 10/02/24 11:25 Pulse Rate 105 H 10/02/24 11:25 Respiratory Rate 16 10/02/24 11:25 Blood Pressure 160/106 H 10/02/24 11:25 Pulse Oximetry 100 10/02/24 11:25 Temperature 36.5 C 10/02/24 11:25 Pulse Rate 105 H 10/02/24 11:25 Respiratory Rate 16 10/02/24 11:25 Blood Pressure 160/106 H 10/02/24 11:25 Pulse Oximetry 100 10/02/24 11:25 Vital signs reviewed MDM - URI/Sore Throat MDM Narrative Medical decision making narrative: At the time of visit patient is resting comfortably on the exam table. Patient appears to be nontoxic. Labs: Influenza testing was negative in the clinic today. Urinalysis negative for any leukocytes, blood, protein, or nitrates. Plan: I suspect patient has gastroenteritis/dysuria/viral syndrome. Supportive measures were discussed with the patient and they voiced understanding discharge instructions and agrees to treatment plan. Return precautions reviewed Differential Diagnosis Differential diagnosis: Likely upper respiratory infection, otitis media, sinusitis, viral infection, bronchitis, influenza, pharyngitis and other (COVID) Lab Data Labs: Lab Results 10/02/24 Range/Units 11:24 POC Urine Color Yellow POC Urine Clarity Clear POC Urine pH 6.0 POC Ur Specif [place] 1.025 POC Urine Protein Negative (Negative) POC Ur Glucose (UA) Negative (Negative) POC Urine Ketones Negative (Negative) POC Urine Blood Negative (Negative) POC Urine Nitrite Negative (Negative) POC Urine Bilirubin Negative (Negative) POC Urine Urobilinogen 0.2 POC U Leukocyte Esteras Negative (Negative) Discharge Plan Discharge Clinical Impression: Gastroenteritis, Acute viral syndrome, Dysuria Patient Disposition: Home, Self-Care Condition: Stable Instructions: Antibiotic Form, Gastroenteritis (ED), Viral Syndrome (ED), Dysuria (ED) Patient Language: Turkmen Prescriptions: No Action albuterol sulfate [ProAir HFA] 90 mcg/actuation HFA aerosol inhaler 2 puff INHALATION Q4-6H PRN (Reason: shortness of breath or wheezing) Qty: 18 0RF (DME) BreatheRite MDI Spacer Spacer See Rx Instructions .ROUTE .MEDSUPPLY Qty: 1 0RF Rx Instructions: As directed lorazepam 0.5 mg tablet 0.5 mg PO BID PRN (Reason: anxiety) Qty: 30 0RF vitamin B complex [B Complex-Vitamin B12] Tablet 1 tablet PO DAILY Mirena 20 mcg/24 hours (5 yrs) 52 mg intrauterine device 1 device I-UTERINE ONCE metoprolol succinate 50 mg tablet extended release 24 hr 50 mg PO DAILY Qty: 90 3RF spironolactone 25 mg tablet 25 mg PO DAILY Qty: 90 1RF paroxetine HCl 30 mg tablet 60 mg PO DAILY Qty: 180 3RF buspirone 5 mg tablet 5 mg PO BID Qty: 60 5RF hydrochlorothiazide 25 mg tablet 25 mg PO QAM Qty: 90 2RF verapamil 360 mg capsule,ext rel. pellets 24 hr See Rx Instructions .ROUTE .COMPLEX Qty: 90 0RF Dose Instruction: TAKE 1 CAPSULE BY MOUTH DAILY Rx Instructions: TAKE 1 CAPSULE BY MOUTH DAILY Wegovy 0.25 mg/0.5 mL pen injector 0.25 mg subcut WEEKLY Qty: 2 0RF Rx Instructions: administer weeks 1 through 4 of therapy meloxicam 7.5 mg tablet See Rx Instructions PO DAILY Qty: 60 2RF Rx Instructions: 1-2 tabs orally daily; Follow-up/Referrals: Jony Fernando MD [Primary Care Provider] - Stand Alone Forms: Work/School Release IP Time of Disposition: 11:35 Quality NIHSS Nursing Documentation ED NIHSS nursing documentation: reviewed/agree
[2024-10-02 11:44] LABS: EDINFLUASCREEN Negative (Negative); EDINFLUBSCREEN Negative (Negative)
== END 2024-10-02 11:37 | disposition home or self-care (01) ==
PROVIDERS: Emergency Provider Nurse Practitioner Family; PCP Family Medicine
DX: K21.9 Gastro-esophageal reflux disease without esophagitis (principal); B34.9 Viral infection, unspecified; R30.0 Dysuria; I10 Essential (primary) hypertension; E66.01 Morbid (severe) obesity due to excess calories; Z68.43 Body mass index [BMI] 50.0-59.9, adult; M17.0 Bilateral primary osteoarthritis of knee; F41.9 Anxiety disorder, unspecified; F32.A Depression, unspecified; Z98.84 Bariatric surgery status; Z87.891 Personal history of nicotine dependence
CPT/HCPCS: 81003; 87804; 99212; G0463

== ENCOUNTER 2024-10-22 05:03 | Emergency (ER) | payer BC, SELFPAY ==
--- NOTE | ~2024-10-22 | XR_ITS ---
Portable chest x-ray Comparison: 11/02/2023 Clinical History: First trimester infection Findings: Lungs are clear, without focal consolidation or pleural effusion. Cardiomediastinal silho uette is stable. Bones and soft tissues are unremarkable. Impression: Normal chest. Reviewed, dictated and finalized at [facility]. 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
--- OUTSIDE RECORDS SUMMARY | 2024-10-22 05:05 | XMS_ITS | Clinical Summary ---
Author Organization [facility] [address] Address [address] [place] [address] Care Team Providers Care Construction Job Titles Name Role Phone Jony Fernando MD Primary Care Provider Allergies No known active allergies Medications hydroCHLOROthiazi de (HYDRODIURIL) 25 mg tablet TK 1 T PO QAM 05/10/2020 Active irbesartan (AVAPRO) 300 mg tablet TK 1 T PO D 05/10/2020 Active metoprolol tartrate (LOPRESSOR) 50 mg immediate release tablet TK 1 T PO Q 12 H 05/10/2020 Active verapamil ER (VERELAN) 240 mg 24 hr capsule TK 1 C PO D 05/10/2020 Act mary PARoxetine (PAXIL) 20 mg tablet Take 20 mg by mouth 2 (two) times a day Active spironolactone (ALDACTONE) 25 mg tabletIndications :Essential hypertension Take 1 tablet (25 mg total) by mouth daily 30 tablet 11 07/31/2020 Active Active Problems Problem Noted Date Diagnosed Date Morbid obesity with BMI of 50.0-59.9, adult 07/04 ARELI (obstructive sleep apnea) 07/31/2020 Exertional chest pain 07/31/2020 Essential hypertension 07/31/2020 Lipid screening 07/31/2020 Dyspnea on exertion 07/31/2020 Medical History Medical History Date Comments Hypertension Shortness of breath Family History Medical History Relation Name Comments Cancer Father No Known Problems Mother Relation Name Status Comments Father Mother Alive Sister Alive Social History Tobacco Use Types Packs/Day Years Used Date Smoking Tobacco: Some Days Cigarettes Smokeless Tobacco: Never Comments:Pack A Week Alcohol Use Standard Drinks/Week Comments Yes 0 (1 standard drink = 0.6 oz pur e alcohol) Socially 6 beers a week Personal Safety Answer Date Recorded Getting School Help Needed Not on file 11/15 Comments Unknown Sex and Gender Information Value Date Recorded Sex Assigned at Not on file 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 Gender Identity Not on file Sexual Orientation Not on file Obstetrics History Last Filed Vital Signs Vital Sign Reading Time Taken Comments Blood Pressure 166/94 08/10/2020 8:33 AM ADULT SCHOOL TEACHER Pulse 76 07/31/2020 8:52 AM ADULT SCHOOL TEACHER Temperature 36.3 C (97.3 F) 08/10/2020 8:33 AM 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
--- OUTSIDE RECORDS SUMMARY | 2024-10-22 05:05 | XMS_ITS | Continuity of Care Document ---
Author Organization [facility] Address [address] [place] [address] Phone Care Team Providers Care Phlebotomy Specialist Name Role Phone Cj Clemente MD Unavailable Unavailable Allergies, Adverse Reactions, Alerts Substance Reaction Status Criticality No Known Allergies Active No Inform ation Medications Medication Instructions Dosage Effective Dates (start - stop) Status Comments CLARITIN (unknown strength) take 1 tablet by oral route every day Not Available - Active PAXIL CR (unknown strength) Not Available - Active NORVASC (unknown strength) Not Available - Active B-12 (unknown strength) Not Available - Active Procedures Procedure Date OFFICE/OUTPATIENT VISIT EST OFFICE/OUTPATIENT VISIT EST OFFICE/OUTPATIENT VISIT EST MU Reporting OFFICE/OUTPATIENT VISIT EST MU Reporting OFFICE/OUTPATIENT VISIT NEW Advance Directives Directive Yes / No Effective Date File Name No Information Encounters Encounter Description Practice Location Reason(s) For Visit Diagnoses Date Provider Providers Copied on Encounter OFFICE/OUTPA TIENT VISIT EST [facility], [address], [address], [place] tel:[phone] [facility] Achilles bursitis or tendinitisEdward overton [address] [place], [place], [id number] . tel: [phone] OFFICE/OUTPA TIENT VISIT EST [facility], [address], [address], [place] tel:[phone] [facility] [place] Achilles bursitis or tendinitis [address], [place], [place], [id number] . tel: [phone] OFFICE/OUTPA TIENT VISIT EST [facility], [address] [address], [place], [address], [place] tel:[phone] [facility] [place] Achilles bursitis or tendinitis [address], [place], [place], [id number] . tel: [phone] Referring Provider: Jony Larose, [address], [place], [address]. tel:[phone] OFFICE/OUTPA TIENT VISIT EST [facility], [address] [address], [place], [address], [place] tel:[phone] [facility] left achilles tend (chief complaint) Achilles bursitis or tendinitis [address], [place], [place], [id number] . tel: [phone] Referring Provider: Jony Larose, [address], [place], [address]. tel:[phone] OFFICE/OUTPA TIENT VISIT NEW [facility], [address] [facility] [address] [address], [place], [address], [place] tel:[phone] [facility] L heel pain (chief complaint) Achilles bursitis or tendinitisDietary surveillance and counselingHyperte nsion, Unspecified [address] , [place], [place], [id number] . tel:[phone] Referring Provider: Jony Larose, [address], [place], [address]. tel:[phone] Family History Family Member Type Diagnosis Age At Onset Father Problem (finding) Maternal history of gennaro betes mellitus Mother Problem (finding) hypertension Father Problem (finding) hypertension Mother Problem (finding) Maternal history of gennaro betes mellitus Father Problem (finding) Cancer Payers Payer name Insurance type Covered libertarian ID Authordominick tabor(s) No Information Social History Type Description Quantity Date Captured Comments Alcohol Use Details No Caffeine Use Details Unknown Tobacco Use Status Ex-cigarette smoker 015 Smoking Status Former smoker Smoking Tobacco Use Details Cigarette: Age Stopped: 35 Cigarette: No Details Available Sex Female Vital Signs Date / Time: Height Weight BMI Pulse Rate Blood Pressure Temperature Respiratory Rate Body Surface Area Head Circumference Head Circ. Percentile Wt./Danyel. Percentile BMI percentile Pulse Ox Inhaled Ox 11:35 AM 66.00 in 124.738 kg (275.00 lbs) 44.3 9 kg/m eter (2) 67 /min 145/78 mm[Hg] Chief Complaint And Reason For Visit No Information Reason For Referral Reason For Referral No Information Plan Of Treatment Date Type Action Status Goal Dietary management education , guidance, and counseling completed Referral Ordered: MRI ANY JT LXTR C-MATRL LT ankle Appointment date/timeframe: 05/12/2014 ordered History Of Present Illness Encounter Date Complaint History Of Prese nt Illness No Information Functional Status Date Functional Assessmen t No Information Instructions Date Instruction Additional Infor mation Dietary management e ducation, guidance, and counseling Related to Overweight Discussed treatment options Rela sandra to Achilles bursitis or tendinitis Discussed treatment options Rela sandra to Achilles bursitis or tendinitis Dietary counseling Related to Di etary surveillance counseling Assessments Type Assessment Date assessment Achilles bursitis or tendinitis assessment Overweight Patient Care Teams Name Effective Dates (start - stop) Status Members No Information
--- OUTSIDE RECORDS SUMMARY | 2024-10-22 05:05 | XMS_ITS | Referral Summary ---
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 Gender Identity Not on file Sexual Orientation Not on file Last Filed Vital Signs Vital Sign Reading Time Taken Comments Blood Pressure 166/94 08/10/2020 8:33 AM PULLMAN CLERK Pulse 76 07/31/2020 8:52 AM PULLMAN CLERK Temperature 36.3 C (97.3 F) 08/10/2020 8:33 AM PULLMAN CLERK Respiratory Rate 15 07/31/2020 8:52 AM PULLMAN CLERK Oxygen Saturation - - Inhaled Oxygen Concentration - - Weight 147 kg (324 lb) 07/31/2020 8:52 AM PULLMAN CLERK Height 167.6 cm (5' 6 ) 07/31/2020 8:52 AM PULLMAN CLERK Body Mass Index 52.29 07/31/2020 8:52 AM PULLMAN CLERK Plan of Treatment Not on file Insurance [facility] Care Teams Architectural Model Maker Relationship Specialty Start Date End Date Jony Fernando MD [address] [facility] [address] [place] [address] PCP - General 05/25/15
--- OUTSIDE RECORDS SUMMARY | 2024-10-22 05:06 | XMS_ITS | Continuity of Care Document ---
Author Organization [facility] Address [address] [place] [address] Phone Care Team Providers Care Plaster Whittler Name Role Phone Cj Clemente MD Unavailable [...] OFFICE/OUTPA TIENT VISIT EST [facility], [address], [address], [place] tel:[phone] [facility] Achilles bursitis or tendinitisEdward [address]ton [address] [place], [place], [id number] . tel: [phone] OFFICE/OUTPA TIENT VISIT EST [facility], [address], [place], [address], [place] tel:[phone] [facility] [place] Achilles bursitis or tendinitis [address], [place], [place], [id number] . tel: [phone] OFFICE/OUTPA TIENT VISIT EST [facility], [address] [address], [place], [address], [place] tel:[phone] [facility] [place] Achilles bursitis or tendinitis [address], [place], [place], [id number] . tel: [phone] Referring Provider: Jony Larose, [address], [place], [address]. tel:[phone] OFFICE/OUTPA TIENT VISIT EST [facility], [address] [address], [place], [address], [place] tel:[phone] [facility] left achilles tend (chief complaint) Achilles bursitis or tendinitis [address], [place], [place], [id number] . tel: [phone] Referring Provider: Jony Larose, [address], [place], [address]. tel:[phone] OFFICE/OUTPA TIENT VISIT NEW [facility], [address] [facility] [address] [place] [address], [place], [address], [place] tel:[phone] [facility] L heel pain (chief complaint) Achilles bursitis or tendinitisDietary surveillance and counselingHyperte nsion, Unspecified [address] , [place], [place], [id number] . tel:[phone] Referring Provider: Jony Larose, [address], [place], [address]. tel:[phone] Family History Family Member Type Diagnosis Age At Onset Father Problem (finding) Maternal history of gennaro betes mellitus Mother Problem (finding) hypertension Father Problem (finding) hypertension Mother Problem (finding) Maternal history of gennaro betes mellitus Father Problem (finding) Cancer Payers Payer name Insurance type Covered constitution party ID Authordominick tabor(s) No Information Social History [...]
[2024-10-22 05:14] LABS: Basophils Percent Auto 0.5 % (0.2-1.2); Eosinophils Absolute Auto 0.1 K/mm3 (0-0.3); Hematocrit 40.6 % (37.0-47.0); Immature Granulocyte Absolute 0.01 K/mm3 (0.00-0.031); Immature Granulocyte Percent A 0.3 % (0-0.5); Lymphocytes Absolute Auto 1.52 K/mm3 (0.9-3.2); Lymphocytes Percent Auto 40.9 % (18.3-44.2); Mean Corpuscular HGB Conc 34.5 g/dl (32-36); Mean Corpuscular Hemoglobin 30.7 pg (26-34); Mean Platelet Volume 9.9 fl (7.4-10.4); Monocytes Absolute Auto 0.3 K/mm3 (0.1-0.6); Monocytes Percent Auto 8.6 % (2.6-8.5); Neutrophils Absolute Auto 1.7 K/mm3 (1.3-6.7); Neutrophils Percent Auto 46.7 % (45.5-73.1); Platelet Count Result 235 k/mm3 (150-375); Red Blood Count 4.56 M/mm3 (4.2-5.4); Red Cell Distribution Width 12.1 % (11.5-14.5); White Blood Count 3.7 K/mm3 (4.5-10.0)
[2024-10-22 05:15] LABS: Partial Thromboplastin Time 29.6 Seconds (22.3-36.8); Prothrombin Time 13.1 Seconds (11.1-14.7)
[2024-10-22 05:16] LABS: Alanine Aminotransferase 97 U/L (6-35); Albumin Level 4.1 g/dL (3.5-5.1); Alkaline Phosphatase 123 U/L (38-126); Anion Gap 11 mmol/L (4-12); Aspartate Amino Transferase 86 U/L (14-36); Bilirubin,Total 0.5 mg/dL (0.2-1.3); Blood Urea Nitrogen 13 mg/dL (7-17); Calcium 8.9 mg/dL (8.4-10.2); Carbon Dioxide 26 mmol/L (22-30); Chloride 94 mmol/L (98-107); Estimated Glomerular Filt Rate > 60; Glucose 116 mg/dL (65-110); Influenza A QL RT-PCR Positive (Negative); Influenza B QL RT-PCR Negative (Negative); Potassium 4.5 mmol/L (3.4-5.0); RSV RNA, RT-PCR Negative (Negative); SARS-CoV-2 RNA PCR Negative (Negative); Sodium 131 mmol/L (137-145); Troponin I < 0.012 ng/mL (0.000-0.034)
--- NOTE | 2024-10-22 05:22 | ECG_ITS ---
Test Date: 2024-10-22 02:24:24 Measurements Intervals [place] Rate: 70 P: 48 TX: 157 QRS: 22 QRSD: 97 T: 19 QT: 394 QTc: 427 Interpretive Statements SINUS RHYTHM BASELINE ARTIFACT- I, II, III, AVR, AVL, AVF, V1-V3 NORMAL ECG No previous ECG available for comparison Electronically Signed On 10-22-2024 09:45:06 CONTROL SPECIALIST by Murphy Sotomayor D.O.
[2024-10-22 05:23] VITALS: BP 114/74; PULSE 70; RESP 18; TEMP 36.6; O2SAT 95
[2024-10-22 05:25] VITALS: RESP 18
--- NOTE | 2024-10-22 05:28 | PC.NURSE ---
pt arrives to ED during downtime. See downtime charting for inital charting and lab requests located within paper chart.
--- NOTE | 2024-10-22 05:48 | ED_ITS ---
HPI - General Adult General Chief complaint: Unspecified Stated complaint: unk Time Seen by Provider: 10/22/24 05:28 History of Present Illness HPI narrative: Patient is a 49-year-old female who presents to the emergency department this evening with flu-like symptoms. States that approximately 5 days ago she started to have some sinus congestion, generalized weakness, lightheadedness, intermittent chest pain radiating to her left arm. Patient states that chest pain has resolved and is currently denying any active chest pain. Patient admits to a cough but denies any shortness of breath. Denies any nausea vomiting or diarrhea. States the body aches and fevers have resolved. No additional symptoms or concerns at this time. Related Data Home Medications ?Medication ?Instructions ?Recorded ?Confirmed ?Last Taken ?Type levonorgestrel (Mirena) 1 device intrauterine ONCE 08/02/19 06/07/24 Unknown History vitamin B complex (B 1 tablet PO DAILY 10/20/19 06/07/24 02/24/21 History Complex-Vitamin B12 tablet) Allergies Allergy/AdvReac Type Severity Reaction Status Date / Time No Known Allergies Allergy Verified 10/02/24 11:20 Review of Systems 2 Review of Systems: All systems are reviewed and are negative unless stated otherwise in the HPI. PMFSH Past Medical History Medical History Morbid obesity Instability of both knee joints Achilles tendinitis of left lower extremity Left calcaneal bursitis Right knee DJD Left knee DJD Headache Nasal sore Bilateral lower extremity edema Essential hypertension Myalgia RLL pneumonia Anxiety RLQ abdominal pain History of anxiety History of depression History of sleep apnea History of hypertension Surgical History Surgical History History of exploratory laparotomy History of gastric bypass Family History Family History Father Diabetes mellitus Hypertension Family history of malignant neoplasm Mother Diabetes mellitus Hypertension Family history of malignant neoplasm Other Family history of arthritis Social History Social History Years smoked: 30 Smoking status: Current some day smoker Tobacco type: cigarettes Second hand tobacco smoke exposure: No Smoking end date: 09/01/09 Additional smoking assessment comments: 3 cigarettes x30 years Alcohol intake: current Substance use: never Substance use type: does not use Do You Feel Safe in your Home?: Yes Lack of Transportation: No Lack of Food: Never True Current Housing: I Have Housing Concerned About Future Housing: No Difficulty Paying Gas/Electric Bills: No Difficulty Paying for Meds: No Currently Unemployed: No Education: Don't Know Difficulty w/ Childcare or Family Care: No Living arrangements: with family Occupation/Education: occupation 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 HEENT: PERRL, no rhinorrhea, no post nasal drip, oropharynx clear. Neck: Trachea midline, no JVD, no lymphadenopathy. Cardiovascular: Regular rate and rhythm, no murmurs, rubs or gallops, no peripheral edema. Respiratory: Clear to auscultation bilaterally, no tachypnea, no wheezing, no rhonchi, no rubs, no respiratory distress. Abdomen: Soft, nontender, nondistended, no rebound, no guarding, no peritoneal signs. Musculoskeletal: No joint swelling or deformity, normal muscle tone. Skin: No rashes or petechia, no signs of infection. Psychiatric: Alert and oriented, normal behavior and judgment for situation. Neurological: Alert and oriented to person, place, and time. Follows all commands. No focal deficits, speech is clear and fluent. Course Vital Signs Vital signs: Vital Signs Temperature 97.8 F 10/22/24 05:23 Pulse Rate 70 10/22/24 05:23 Respiratory Rate 18 10/22/24 05:23 Blood Pressure 114/74 10/22/24 05:23 Pulse Oximetry 95 10/22/24 05:23 Oxygen Delivery Room Air 10/22/24 05:23 Temperature 97.8 F 10/22/24 05:23 Pulse Rate 70 10/22/24 05:23 Respiratory Rate 18 10/22/24 05:25 Blood Pressure 114/74 10/22/24 05:23 Pulse Oximetry 95 10/22/24 05:23 Oxygen Delivery Room Air 10/22/24 05:23 Medical Decision Making MDM Narrative Medical decision making narrative: The patient was evaluated by myself in the emergency department. History is obtained from patient who is an independent historian and physical exam was performed. External medical records were reviewed at this time. IV was established and pertinent tests were ordered. EKG was obtained which revealed sinus rhythm at a rate of 70 beats per minute. No ST changes, T wave inversions or evidence of acute ischemia. EKG was independently interpreted by me and is currently pending official cardiology read. Laboratory results obtained revealing a white blood cell count of 3.7, sodium of 131 and mild transaminitis with an AST of 86 and ALT of 97 likely secondary to acute viral syndrome. Patient did test positive for influenza A. Patient's troponin was negative. Imaging studies obtained included CXR which was independently interpreted by me revealing no acute process, which is pending final radiology interpretation. Differential diagnosis considerations include acute viral syndrome including COVID/influenza/RSV, infectious process such as pneumonia, dehydration, electrolyte derangements. Comorbidities impacting this visit include none. I have evaluated and discussed social determinants of health with the patient that could potentially impact subsequent diagnosis and treatment plans. On repeat assessment of the patient, reevaluation revealed that the patient is doing well and is in no acute distress. Patient symptoms have improved since she arrived to our emergency department. Repeat vital signs were all reviewed and noted to be stable. Differential diagnosis and treatment plan were discussed with the patient at bedside. Patient agrees with discussion and after shared medical decision making agrees with discharge. All questions were answered to the patient's satisfaction. Patient will follow up with her PCP in 3-5 days. Patient was provided with strict return precautions and instructed to return to the emergency department if any new or worsening symptoms develop. The patient was discharged in stable condition. Vital Signs Vital Signs: Vital Signs Temperature 97.8 F 10/22/24 05:23 Pulse Rate 70 10/22/24 05:23 Respiratory Rate 18 10/22/24 05:23 Blood Pressure 114/74 10/22/24 05:23 Pulse Oximetry 95 10/22/24 05:23 Oxygen Delivery Room Air 10/22/24 05:23 Temperature 97.8 F 10/22/24 05:23 Pulse Rate 70 10/22/24 05:23 Respiratory Rate 18 10/22/24 05:25 Blood Pressure 114/74 10/22/24 05:23 Pulse Oximetry 95 10/22/24 05:23 Oxygen Delivery Room Air 10/22/24 05:23 Lab Data 10/22/24 02:41 10/22/24 02:41 Labs: Lab Results 10/22/24 Range/Units 02:41 WBC 3.7 L (4.5-10.0) K/mm3 RBC 4.56 (4.2-5.4) M/mm3 Hgb 14.0 (12.0-15.0) g/dL Hct 40.6 (37.0-47.0) % MCV 89.0 (80-100) fl MCH 30.7 (26-34) pg MCHC 34.5 (32-36) g/dl RDW 12.1 (11.5-14.5) % Plt Count 235 (150-375) k/mm3 MPV 9.9 (7.4-10.4) fl Immature Gran % (Auto) 0.3 (0-0.5) % Neut % (Auto) 46.7 (45.5-73.1) % Lymph % (Auto) 40.9 (18.3-44.2) % [place] % (Auto) 8.6 H (2.6-8.5) % Eos % (Auto) 3.0 (0-4.4) % Baso % (Auto) 0.5 (0.2-1.2) % Lymph # (Auto) 1.52 (0.9-3.2) K/mm3 [place] # (Auto) 0.3 (0.1-0.6) K/mm3 Eos # (Auto) 0.1 (0-0.3) K/mm3 Baso # (Auto) 0.0 (0.0-0.1) K/mm3 Abs Immat Gran (auto) 0.01 (0.00-0.031) K/mm3 Absolute Neuts (auto) 1.7 (1.3-6.7) K/mm3 Absolute Nucleated RBC 0.000 (0.0-0.012) K/mm3 Nucleated RBC % 0.0 (0.0-0.2) % PT 13.1 (11.1-14.7) Seconds INR 1.0 APTT 29.6 (22.3-36.8) Seconds Sodium 131 L (137-145) mmol/L Potassium 4.5 (3.4-5.0) mmol/L Chloride 94 L (98-107) mmol/L Carbon Dioxide 26 (22-30) mmol/L Anion Gap 11 (4-12) mmol/L BUN 13 (7-17) mg/dL Creatinine 0.69 L (0.7-1.0) mg/dL Estim Creat Clear Calc Not Reportable Estimated GFR > 60 (59 - ) Glucose 116 H (65-110) mg/dL Calcium 8.9 (8.4-10.2) mg/dL Total Bilirubin 0.5 (0.2-1.3) mg/dL AST 86 H (14-36) U/L ALT 97 H (6-35) U/L Alkaline Phosphatase 123 (38-126) U/L Troponin I < 0.012 (0.000-0.034) ng/mL Total Protein 8.0 (6.3-8.2) g/dL Albumin 4.1 (3.5-5.1) g/dL Influenza A (RT-PCR) Positive A (Negative) Influenza B (RT-PCR) Negative (Negative) RSV (RT-PCR) Negative (Negative) SARS-CoV-2 RNA (RT-PCR) Negative (Negative) Discharge Plan Discharge Clinical Impression: Influenza A, Generalized weakness, Chest pain Patient Disposition: Home, Self-Care Condition: Improved Instructions: Antibiotic Form, Chest Pain (ED), Influenza (ED) Additional Instructions: Please follow-up with your family doctor within the next 3-5 days. Maintain your oral hydration by drinking lots of fluids. Return to the ED if any new or worsening symptoms develop. Patient Language: Emirati Prescriptions: No Action albuterol sulfate [ProAir HFA] 90 mcg/actuation HFA aerosol inhaler 2 puff INHALATION Q4-6H PRN (Reason: shortness of breath or wheezing) Qty: 18 0RF (DME) BreatheRite MDI Spacer Spacer See Rx Instructions .ROUTE .MEDSUPPLY Qty: 1 0RF Rx Instructions: As directed lorazepam 0.5 mg tablet 0.5 mg PO BID PRN (Reason: anxiety) Qty: 30 0RF vitamin B complex [B Complex-Vitamin B12] Tablet 1 tablet PO DAILY Mirena 20 mcg/24 hours (5 yrs) 52 mg intrauterine device 1 device I-UTERINE ONCE metoprolol succinate 50 mg tablet extended release 24 hr 50 mg PO DAILY Qty: 90 3RF spironolactone 25 mg tablet 25 mg PO DAILY Qty: 90 1RF paroxetine HCl 30 mg tablet 60 mg PO DAILY Qty: 180 3RF buspirone 5 mg tablet 5 mg PO BID Qty: 60 5RF hydrochlorothiazide 25 mg tablet 25 mg PO QAM Qty: 90 2RF Wegovy 0.25 mg/0.5 mL pen injector 0.25 mg subcut WEEKLY Qty: 2 0RF Rx Instructions: administer weeks 1 through 4 of therapy meloxicam 7.5 mg tablet See Rx Instructions PO DAILY Qty: 60 2RF Rx Instructions: 1-2 tabs orally daily; verapamil 360 mg capsule,ext rel. pellets 24 hr See Rx Instructions .ROUTE .COMPLEX Qty: 90 0RF Dose Instruction: TAKE 1 CAPSULE BY MOUTH DAILY Rx Instructions: TAKE 1 CAPSULE BY MOUTH DAILY Follow-up/Referrals: Jony Fernando MD [Primary Care Provider] - 3 Days Time of Disposition: 05:54
[2024-10-22 06:02] VITALS: BP 111/72; PULSE 70; RESP 19; O2SAT 100
== END 2024-10-22 06:03 | disposition home or self-care (01) ==
PROVIDERS: Emergency Provider Emergency Medicine; PCP Family Medicine
DX: J10.1 Influenza due to other identified influenza virus with other respiratory manifestations (principal); R53.1 Weakness; R07.9 Chest pain, unspecified; Z20.822 Contact with and (suspected) exposure to COVID-19; I10 Essential (primary) hypertension; E66.01 Morbid (severe) obesity due to excess calories; Z68.43 Body mass index [BMI] 50.0-59.9, adult; G47.30 Sleep apnea, unspecified; M17.0 Bilateral primary osteoarthritis of knee; Z98.84 Bariatric surgery status; Z97.5 Presence of (intrauterine) contraceptive device; Z87.01 Personal history of pneumonia (recurrent); Z87.891 Personal history of nicotine dependence; Z79.899 Other long term (current) drug therapy
CPT/HCPCS: 36415; 71045; 80053; 84484; 85025; 85610; 85730; 87637; 93005; 99284

== ENCOUNTER 2025-04-05 15:32 | Emergency (ER) | payer BC, SELFPAY ==
[2025-04-05 15:45] VITALS: BP 140/95; PULSE 95; RESP 20; TEMP 36.6; O2SAT 96
--- NOTE | 2025-04-05 16:21 | ED.LOWEXIN ---
HPI - Extremity Injury (Lower) General Chief Complaint: Extremity Injury, Lower Stated Complaint: R Knee Time Seen by Provider: 04/05/25 15:45 Source: patient and RN notes reviewed Mode of arrival: ambulatory Limitations: no limitations History of Present Illness HPI Narrative: [age] year old female Presents Express Care complaining of right knee pain. Patient reports having history of chronic knee problems. Patient denies any injury to her knee. Patient says she started noticed clicking and popping her right knee reports having radiating pain upper thigh and down her leg. Patient denies any back pain. Patient has been taking her meloxicam without relief. Patient said today while she was in the shower she felt her knee almost give out she also fell to the ground. Patient states she is able to bear weight on her knees. Patient denies any numbness, tingling or any other injuries. Patient denies any significant past medical history. Related Data Home Medications ?Medication ?Instructions ?Recorded ?Confirmed ?Last Taken ?Type levonorgestrel (Mirena) 1 device intrauterine ONCE 08/02/19 10/26/24 Unknown History vitamin B complex (B 1 tablet PO DAILY 10/20/19 10/26/24 02/24/21 History Complex-Vitamin B12 tablet) fexofenadine 180 mg tablet 180 mg PO DAILY 03/18/25 03/18/25 Unknown History (Joana Allergy) Allergies Allergy/AdvReac Type Severity Reaction Status Date / Time No Known Allergies Allergy Verified 04/05/25 15:44 Review of Systems Review of Systems: CONSTITUTIONAL: Denies fever, chills, or sweats. EYES: Denies visual changes, redness, or discharge. ENT: Denies rhinorrhea, congestion, sore throat, or otalgia. CARDIOVASCULAR: Denies chest pain, palpitations, or edema. RESPIRATORY: Denies cough or dyspnea. GASTROINTESTINAL: Denies abdominal pain, nausea, vomiting, or diarrhea. GENITOURINARY: Denies dysuria or hematuria. SKIN: Denies rash, wound, or itching. MUSCULOSKELETAL: Denies back pain, joint pain, or myalgia. Positive for right knee NEUROLOGIC: Denies headache, numbness, or weakness. PSYCHIATRIC: Denies anxiety or depression. All other systems reviewed are negative, except as documented in HPI. [facility] Past Medical History Medical History Morbid obesity Instability of both knee joints Achilles tendinitis of left lower extremity Left calcaneal bursitis Right knee DJD Left knee DJD Headache Nasal sore Bilateral lower extremity edema Essential hypertension Myalgia RLL pneumonia Anxiety RLQ abdominal pain History of anxiety History of depression History of sleep apnea History of hypertension Surgical History Surgical History History of exploratory laparotomy History of gastric bypass Family History Family History Father Diabetes mellitus Hypertension Family history of malignant neoplasm Mother Diabetes mellitus Hypertension Family history of malignant neoplasm Other Family history of arthritis Social History Social History Years smoked: 30 Smoking status: Current some day smoker Tobacco type: cigarettes Second hand tobacco smoke exposure: No Smoking end date: 09/01/09 Additional smoking assessment comments: 3 cigarettes x30 years Alcohol intake: current Substance use: never Substance use type: does not use Do You Feel Safe in your Home?: Yes Lack of Transportation: No Lack of Food: Never True Current Housing: I Have Housing Concerned About Future Housing: No Difficulty Paying Gas/Electric Bills: No Difficulty Paying for Meds: No Currently Unemployed: No Education: Don't Know Difficulty w/ Childcare or Family Care: No Living arrangements: with family Occupation/Education: occupation 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 There is no relevant family history pertinent to the patient complaint. Exam Narrative: GENERAL: This is a well-nourished, well-developed adult, in no apparent distress. They are non ill-appearing, nontoxic appearing. Patient is morbidly obese. Physical exam is limited due to large body habitus. HEAD: normocephalic, atraumatic. EYES: Sclera clear/white. Vision is grossly intact. Conjunctiva normal. Extraocular movement intact. EARS: External ears normal Hearing grossly intact. NOSE: External nose normal THROAT: Mucous membranes moist NECK: Neck supple CARDIOVASCULAR: Regular rate and rhythm RESPIRATORY: Respiratory rate normal, respiratory effort nonlabored, no respiratory distress NEURO: awake, alert, and oriented to person, place and time. There were no obvious focal neurologic abnormalities. EXTREMITIES: Right knee: No obvious deformity, injury, swelling, bruising, redness. Mild tenderness to full range of motion. No bony tenderness. Capillary refill less than 3 seconds.Normal sensation. Neurovascular status intact distal injury. No valgus or varus laxity. BACK: Nontender without deformity. Course Course Emergency Course: Portions of this record may have been created with voice recognition software Level of Care: Express Care Visit Vital Signs Vital signs: Vital Signs Temperature 97.8 F 04/05/25 15:45 Pulse Rate 95 04/05/25 15:45 Respiratory Rate 20 04/05/25 15:45 Blood Pressure 140/95 H 04/05/25 15:45 Pulse Oximetry 96 04/05/25 15:45 Oxygen Delivery Room Air 04/05/25 15:45 Temperature 97.8 F 04/05/25 15:45 Pulse Rate 95 04/05/25 15:45 Respiratory Rate 20 04/05/25 15:45 Blood Pressure 140/95 H 04/05/25 15:45 Pulse Oximetry 96 04/05/25 15:45 Oxygen Delivery Room Air 04/05/25 15:45 Reviewed MDM - Extremity Injury (Lower) MDM Narrative Medical decision making narrative: You informed patient x-ray is down at this current time will up able to perform any imaging, there is low suspicion for any fractures. No obvious injury, no bony tenderness, no swelling or bruising. Likely patient has knee sprain. Given radiating pain will prescribe a course of prednisone. Patient wear a knee brace will follow up outpatient with her primary care provider if the pain persists. Discussed physical exam findings. Advised supportive measures and signs/symptoms to go to the ER. Pt is appropriate for outpt treatment and f/u. Differential Diagnosis Differential diagnosis: Likely acute internal derangement of knee and other (Arthritis, knee sprain, knee fracture) Critical Care Time Critical Care Time Critical Care Time: No Discharge Plan Discharge Clinical Impression: Arthralgia of knee, right Patient Disposition: Home Condition: Stable Instructions: Knee Pain (ED) Additional Instructions: Take prednisone as directed. Rest and elevate the leg; bear weight as tolerated Apply ice or heat 15-20 minute intervals several times a day Keep it wrapped with GREGG or use a knee brace Tylenol 1000mg every 8 hours as needed for pain Follow up with your primary care provider or your orthopedist as needed in 1-2 weeks Patient Language: Occitan Prescriptions: New prednisone 20 mg tablet 40 mg PO DAILY 5 Days Qty: 10 0RF No Action albuterol sulfate [ProAir HFA] 90 mcg/actuation HFA aerosol inhaler 2 puff INHALATION Q4-6H PRN (Reason: shortness of breath or wheezing) Qty: 18 0RF (DME) BreatheRite MDI Spacer Spacer See Rx Instructions .ROUTE .MEDSUPPLY Qty: 1 0RF Rx Instructions: As directed fexofenadine [Joana Allergy] 180 mg tablet 180 mg PO DAILY spironolactone 50 mg tablet 50 mg PO DAILY Qty: 30 1RF vitamin B complex [B Complex-Vitamin B12] Tablet 1 tablet PO DAILY Mirena 20 mcg/24 hours (5 yrs) 52 mg intrauterine device 1 device I-UTERINE ONCE metoprolol succinate 50 mg tablet extended release 24 hr 50 mg PO DAILY Qty: 90 3RF paroxetine HCl 30 mg tablet 60 mg PO DAILY Qty: 180 3RF hydrochlorothiazide 25 mg tablet 25 mg PO QAM Qty: 90 2RF buspirone 5 mg tablet 5 mg PO BID Qty: 60 5RF Saxenda 3 mg/0.5 mL (18 mg/3 mL) pen injector 1.8 mg subcut DAILY Qty: 15 0RF Rx Instructions: inject once daily: week 1 = 0.6mg, week 2 = 1.2mg, week 3 = 1.8mg meloxicam 7.5 mg tablet See Rx Instructions .ROUTE .COMPLEX Qty: 60 0RF Dose Instruction: TAKE 1 TO 2 TABLETS BY MOUTH DAILY Rx Instructions: TAKE 1 TO 2 TABLETS BY MOUTH DAILY clonazepam [Klonopin] 0.5 mg tablet 0.5 mg PO BID PRN (Reason: panic attack(s)) Qty: 15 0RF verapamil 360 mg capsule,ext rel. pellets 24 hr See Rx Instructions .ROUTE .COMPLEX Qty: 90 0RF Dose Instruction: TAKE 1 CAPSULE BY MOUTH DAILY Rx Instructions: TAKE 1 CAPSULE BY MOUTH DAILY Follow-up/Referrals: Jony Fernando MD [Primary Care Provider] - Stand Alone Forms: Work/School Release IP Time of Disposition: 16:00
== END 2025-04-05 16:06 | disposition home or self-care (01) ==
PROVIDERS: PCP Family Medicine
DX: M25.561 Pain in right knee (principal); I10 Essential (primary) hypertension; F41.9 Anxiety disorder, unspecified; F32.A Depression, unspecified; M17.0 Bilateral primary osteoarthritis of knee; E66.01 Morbid (severe) obesity due to excess calories; Z68.43 Body mass index [BMI] 50.0-59.9, adult; Z87.891 Personal history of nicotine dependence
CPT/HCPCS: 99213; G0463

== ENCOUNTER 2025-05-26 15:17 | Emergency (ER) | payer BC, SELFPAY ==
[2025-05-26 15:26] VITALS: BP 133/92; PULSE 83; RESP 20; TEMP 36.8; O2SAT 99
--- NOTE | 2025-05-26 16:18 | ED_ITS ---
HPI - Nausea/Vomiting/Diarrhea General Chief complaint: Nausea/Vomiting/Diarrhea Stated complaint: flu symptoms Time Seen by Provider: 05/26/25 16:10 Source: patient, RN notes reviewed and old records reviewed Mode of arrival: ambulatory Limitations: no limitations History of Present Illness HPI Narrative: 49 year old female who [facility] with complaints of 4 day history of diarrhea, nausea and decreased energy. Patient reports that yesterday she had vomiting and diarrhea and today some diarrhea. Patient reports that she has had no cough, body aches or any fevers or chills.Patient reports no abdominal pain.Patient has not taken any OTC medications for her symptoms. MD elicited complaint: nausea, vomiting and diarrhea Onset (ago): day(s) (4) Description of vomiting: food contents Description of diarrhea: watery Associated nausea: Yes Associated abdominal pain: No Severity: mild Treatment prior to arrival: none Related Data Home Medications ?Medication ?Instructions ?Recorded ?Confirmed ?Last Taken ?Type levonorgestrel (Mirena) 1 device intrauterine ONCE 1 10/03/18 10/26/24 Unknown History vitamin B complex (B 1 tablet PO DAILY 10/20/19 0 10/26/24 02/24/21 History Complex-Vitamin B12 tablet) Allergies Allergy/AdvReac Type Severity Reaction Status Date / Time No Known Allergies Allergy Verified 05/26/25 15:19 Review of Systems Review of Systems: CONSTITUTIONAL: Denies fever, chills, or sweats. EYES: Denies visual changes, redness, or discharge. ENT: Denies rhinorrhea, congestion, sore throat, or otalgia. CARDIOVASCULAR: Denies chest pain, palpitations, or edema. RESPIRATORY: Denies cough or dyspnea. GASTROINTESTINAL: Denies abdominal pain,positive for nausea, vomiting, or diarrhea. GENITOURINARY: Denies dysuria or hematuria. SKIN: Denies rash or itching. MUSCULOSKELETAL: Denies back pain, joint pain, or myalgia. NEUROLOGIC: Denies headache, numbness, or weakness, reports fatigue and decreased energy PSYCHIATRIC: reports history of anxiety or depression. All systems reviewed & are unremarkable except as noted in HPI and below PMFSH Past Medical History Medical History Morbid obesity Instability of both knee joints Achilles tendinitis of left lower extremity Left calcaneal bursitis Right knee DJD Left knee DJD Headache Nasal sore Bilateral lower extremity edema Essential hypertension Myalgia RLL pneumonia Anxiety RLQ abdominal pain History of anxiety History of depression History of sleep apnea History of hypertension Surgical History Surgical History History of exploratory laparotomy History of gastric bypass Family History Family History Father Diabetes mellitus Hypertension Family history of malignant neoplasm Mother Diabetes mellitus Hypertension Family history of malignant neoplasm Other Family history of arthritis Social History Social History Years smoked: 30 Smoking status: Current some day smoker Tobacco type: cigarettes Second hand tobacco smoke exposure: No Smoking end date: 09/01/09 Additional smoking assessment comments: 3 cigarettes x30 years Alcohol intake: current Substance use: never Substance use type: does not use Do You Feel Safe in your Home?: Yes Lack of Transportation: No Lack of Food: Never True Current Housing: I Have Housing Concerned About Future Housing: No Difficulty Paying Gas/Electric Bills: No Difficulty Paying for Meds: No Currently Unemployed: No Education: Don't Know Difficulty w/ Childcare or Family Care: No Living arrangements: with family Occupation/Education: occupation 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 There is no relevant family history pertinent to the presenting complaint Exam Narrative: GENERAL: Well-appearing, well-nourished,morbid obesity, and in no acute distress. HEAD: Normocephalic, atraumatic. EYES: PERRLA and EOMI. ENT: Nares clear, no rhinorrhea or epistaxis. Mucous membranes moist. NECK: Supple. no lymphadenopathy CHEST: Clear to auscultation. No respiratory distress.SAO2 99% on room air HEART: Regular rate and rhythm. No murmur heard. Normal peripheral pulses. ABDOMEN: Soft, nontender on palpation, nondistended, normal active bowel sounds.complaints of nausea and diarrhea, one day of vomiting EXTREMITIES: Normal range of motion. No edema. SKIN: Warm, dry, no rash. NEURO: No focal deficits. Alert and oriented x3. Course Course Emergency Course: Patient is aware of diagnosis, understands and agrees to treatment plan.? Anticipatory guidance given.? Patient agrees to follow-up as directed and is aware of reasons to seek care at the emergency department. Portions of this record may have been created with voice recognition software Level of Care: Express Care Visit Vital Signs Vital signs: Vital Signs Temperature 36.8 C 05/26/25 15:26 Pulse Rate 83 05/26/25 15:26 Respiratory Rate 20 05/26/25 15:26 Blood Pressure 133/92 H 05/26/25 15:26 Pulse Oximetry 99 05/26/25 15:26 Oxygen Delivery Room Air 05/26/25 15: Temperature 36.8 C 05/26/25 15:26 Pulse Rate 83 05/26/25 15:26 Respiratory Rate 20 05/26/25 15:26 Blood Pressure 133/92 H 05/26/25 15:26 Pulse Oximetry 99 05/26/25 15:26 Oxygen Delivery Room Air 05/26/25 15:26 Reviewed MDM - Nausea/Vomiting/Diarrhea Differential Diagnosis Differential diagnosis: Likely traveler's diarrhea, gastroenteritis and other (influenza, COVID, viral syndrome) Medical Records Attestation: I reviewed the patient's medical records. Lab Data Attestation: I reviewed the patient's lab results. Lab results narrative: Flu A&B negative, COVID antigen negative Labs: Lab Results 05/26/25 Range/Units 16:23 POC Influenza A Ag Negative (Negative) POC Influenza B Ag Negative (Negative) POC SARS CoV-2 Ag Negative (Negative) reviewed Critical Care Time Critical Care Time Critical Care Time: No Discharge Plan Discharge Clinical Impression: Viral syndrome Patient Disposition: Home Condition: Stable Instructions: Viral Syndrome (ED) Additional Instructions: Clear liquids for the next 8-10 hours, then advance to a bland diet as tolerated A bland diet can consist of--BRAT diet which is bananas, rice, applesauce, and toast Avoid fried, greasy, fatty, fried foods Avoid caffeine, nicotine, and alcohol Return to your regular diet in the next 3-4 days Medication as directed for nausea and vomiting [id number] Imodium for diarrhea per package instructs Follow-up with her PCP if continued problems or uncontrolled pain If your symptoms persist, change or worsen significantly before you can contact your personal physician then please, without delay, go to the emergency department for further evaluation. Follow-up with PCP in 7-10 days or sooner if needed Follow up with PCP soon in regards to your blood pressure which is elevated above threshold for referral. Blood pressure above 120/80 may indicate pre-hyper tension. 133/92 Patient Language: Kyrgyz Prescriptions: No Action (DME) [employer] MDI Spacer Spacer See Rx Instructions .ROUTE .MEDSUPPLY Qty: 1 0RF Rx Instructions: As directed spironolactone 50 mg tablet 50 mg PO DAILY Qty: 30 1RF vitamin B complex [B Complex-Vitamin B12] Tablet 1 tablet PO DAILY Mirena 20 mcg/24 hours (5 yrs) 52 mg intrauterine device 1 device I-UTERINE ONCE hydrochlorothiazide 25 mg tablet 25 mg PO QAM Qty: 90 2RF verapamil 360 mg capsule,ext rel. pellets 24 hr See Rx Instructions .ROUTE .COMPLEX Qty: 90 0RF Dose Instruction: TAKE 1 CAPSULE BY MOUTH DAILY Rx Instructions: TAKE 1 CAPSULE BY MOUTH DAILY meloxicam 7.5 mg tablet See Rx Instructions .ROUTE .COMPLEX Qty: 60 0RF Dose Instruction: TAKE 1 TO 2 TABLETS BY MOUTH DAILY Rx Instructions: TAKE 1 TO 2 TABLETS BY MOUTH DAILY metoprolol succinate 50 mg tablet extended release 24 hr 50 mg PO DAILY Qty: 90 3RF paroxetine HCl 30 mg tablet 60 mg PO DAILY Qty: 180 3RF Follow-up/Referrals: Jony Fernando MD [Primary Care Provider, Family Practice] Stand Alone Forms: Work/School Release IP Time of Disposition: 16:55 Quality Oh Coma Scale Eyes: Open Verbal: Oriented and Alert Motor: Follows Commands Oh Coma Total Score: 15
[2025-05-26 16:43] LABS: EDCOVIDSCREEN Negative (Negative); EDINFLUASCREEN Negative (Negative); EDINFLUBSCREEN Negative (Negative)
--- OUTSIDE RECORDS SUMMARY | 2025-05-26 17:26 | XMS_ITS | Clinical Summary ---
Author Organization [facility] [address] Address [address] [place] [address] Care Team Providers Care Call Center Nurse Name Role Phone Jony Fernando MD Primary [...] on file Legal Sex Female 3:49 AM [employer]LO[employer] Gender Identity Not on file Sexual Orientation Not on file Obstetrics History Last Filed Vital Signs Vital Sign Reading Time Taken Comments Blood Pressure 166/94 08/10/2020 8:33 AM [employer]LO[employer] Pulse 76 07/31/2020 8:52 AM [employer] Temperature 36.3 C (97.3 F) 08/10/2020 8:33 AM [employer] Respiratory Rate 15 07/31/2020 8:52 AM [employer] Oxygen Saturation - - Inhaled Oxygen Concentration - - Weight 147 kg (324 lb) 07/31/2020 8:52 AM [employer] Height 167.6 cm (5' 6) 07/31/2020 8:52 AM [employer] Body Mass Index 52.29 07/31/2020 8:52 AM [employer] Plan of Treatment Not on file Insurance Care Teams Call Center Nurse Relationship Specialty Start Date End Date Jony Fernando MD [address] [facility] [address] [place] [address] PCP - General 05/25/15
== END 2025-05-26 17:04 | disposition home or self-care (01) ==
PROVIDERS: Emergency Provider Registered Nurse; PCP Family Medicine
DX: B34.9 Viral infection, unspecified (principal); F17.210 Nicotine dependence, cigarettes, uncomplicated; Z20.822 Contact with and (suspected) exposure to COVID-19
CPT/HCPCS: 87426; 87804; 99212; G0463

== ENCOUNTER 2025-08-31 10:58 | Emergency (ER) | payer BC, SELFPAY ==
[2025-08-31 11:08] VITALS: BP 133/83; PULSE 88; RESP 18; TEMP 36.1; O2SAT 98
--- OUTSIDE RECORDS SUMMARY | 2025-08-31 11:17 | XMS_ITS | Clinical Summary ---
Author Organization [facility] [address] Address [address] [place] [address] Care Team Providers Care Associate Professor Physician Name Role Phone Jony Fernando MD Primary [...] on file Legal Sex Female 3:49 AM RECYCLING TECH Gender Identity Not on file Sexual Orientation Not on file Last Filed Vital Signs Vital Sign Reading Time Taken Comments Blood Pressure 166/94 08/10/2020 8:33 AM RECYCLING TECH Pulse 76 07/31/2020 8:52 AM RECYCLING TECH Temperature 36.3 C (97.3 F) 08/10/2020 8:33 AM RECYCLING TECH Respiratory Rate 15 07/31/2020 8:52 AM RECYCLING TECH Oxygen Saturation - - Inhaled Oxygen Concentration - - Weight 147 kg (324 lb) 07/31/2020 8:52 AM RECYCLING TECH Height 167.6 cm (5' 6) 07/31/2020 8:52 AM RECYCLING TECH Body Mass Index 52.29 07/31/2020 8:52 AM RECYCLING TECH Plan of Treatment Not on file Insurance Care Teams Associate Professor Physician Relationship Specialty Start Date End Date Jony Fernando MD [address] [facility] [address] [place] [address] PCP - General 05/25/15
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
[2025-08-31 11:33] LABS: EDSTREPNEGPOS1 Positive (Negative)
--- NOTE | 2025-08-31 11:34 | ED.URI ---
HPI - URI/Sore Throat General Chief Complaint: Upper Respiratory Infection Stated Complaint: throat/headache Time Seen by Provider: 08/31/25 11:30 Source: patient and RN notes reviewed Mode of arrival: ambulatory Limitations: no limitations History of Present Illness HPI Narrative: 50-year-old female patient presents today with a 2 day history of sore throat, frontal headache, fatigue, slight postnasal drainage. Currently rates her pain 5/10 with swallowing. No OTC treatment prior to arrival. No recent antibiotic use. Related Data Home Medications ?Medication ?Instructions ?Recorded ?Confirmed ?Last Taken ?Type levonorgestrel (Mirena) 1 device intrauterine ONCE 08/02/19 08/04/25 Unknown History vitamin B complex (B 1 tablet PO DAILY 10/20/19 08/04/25 02/24/21 History Complex-Vitamin B12 tablet) buspirone 10 mg tablet mg 08/31/25 Unknown History paroxetine HCl 10 mg tablet mg PO 08/31/25 Unknown History propranolol 20 mg tablet mg 08/31/25 Unknown History sertraline 25 mg tablet mg 08/31/25 Unknown History Allergies Allergy/AdvReac Type Severity Reaction Status Date / Time No Known Allergies Allergy Verified 08/31/25 11:13 PMFSH Past Medical History Medical History Morbid obesity Instability of both knee joints Achilles tendinitis of left lower extremity Left calcaneal bursitis Right knee DJD Left knee DJD Headache Nasal sore Bilateral lower extremity edema Essential hypertension Myalgia RLL pneumonia Anxiety RLQ abdominal pain History of anxiety History of depression History of sleep apnea History of hypertension Surgical History Surgical History History of exploratory laparotomy History of gastric bypass Family History Family History Father Diabetes mellitus Hypertension Family history of malignant neoplasm Mother Diabetes mellitus Hypertension Family history of malignant neoplasm Other Family history of arthritis Social History Social History Years smoked: 30 Smoking status: Current some day smoker Tobacco type: cigarettes Second hand tobacco smoke exposure: No Smoking end date: 09/01/09 Additional smoking assessment comments: 3 cigarettes x30 years Alcohol intake: current Substance use: never Substance use type: does not use Lack of Transportation: No Lack of Food: Never True Current Housing: I Have Housing Concerned About Future Housing: No Difficulty Paying Gas/Electric Bills: No Difficulty Paying for Meds: No Currently Unemployed: No Education: Don't Know Difficulty w/ Childcare or Family Care: No Living arrangements: with family Occupation/Education: occupation 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 Please see nursing chart for further information. There is no relevant family history pertinent to the presenting complaint Exam Narrative: GENERAL: Well-appearing, well-nourished, and in no acute distress. HEAD: Normocephalic, atraumatic. EYES: EOMI. No redness or drainage. Conjunctivae normal. ENT: Mucous membranes pink and moist. Nares clear. No rhinorrhea. TMs normal bilaterally. Throat normal. Uvula midline. NECK: Normal AROM. Supple. No lymphadenopathy. CHEST: No respiratory distress. Clear to auscultation. HEART: Regular rate and rhythm. No murmur appreciated. EXTREMITIES: Normal range of motion. No edema. SKIN: Warm, dry, no rash. Capillary refill normal. Normal skin turgor. NEURO: No focal deficits. Alert and oriented x3. Gait steady. PSYCH: Normal affect. No signs of depression or anxiety. Course Course Level of Care: Express Care Visit Vital Signs Vital signs: Vital Signs Temperature 97 F L 08/31/25 11:08 Pulse Rate 88 08/31/25 11:08 Respiratory Rate 18 08/31/25 11:08 Blood Pressure 133/83 08/31/25 11:08 Pulse Oximetry 98 08/31/25 11:08 Oxygen Delivery Room Air 08/31/25 11:08 Temperature 97 F L 08/31/25 11:08 Pulse Rate 88 08/31/25 11:08 Respiratory Rate 18 08/31/25 11:08 Blood Pressure 133/83 08/31/25 11:08 Pulse Oximetry 98 08/31/25 11:08 Oxygen Delivery Room Air 08/31/25 11:08 Reviewed [facility] Narrative Medical decision making narrative: 50-year-old female patient presents today with a 2 day history of sore throat, frontal headache, fatigue, slight postnasal drainage. Currently rates her pain 5/10 with swallowing. No OTC treatment prior to arrival. No recent antibiotic use. Normal physical exam. Rapid strep positive. Prescription for amoxicillin sent to pharmacy. Anticipatory guidance given. Patient agrees with plan. Vital signs stable. Differential Diagnosis Differential Diagnosis: Strep throat, pharyngitis, URI, AOM, mononucleosis Lab Data [facility] Lab Attestation statement: I personally reviewed the patient's lab results. Labs: Lab Results 08/31/25 Range/Units 11:31 POC Grp A Strep Screen Positive (Negative) Critical Care Time Critical Care Time Critical Care Time: No Discharge Plan Discharge Clinical Impression: Strep throat Patient Disposition: Home Condition: Stable Instructions: Antibiotic Form, Strep Throat (DC) Additional Instructions: You tested positive for strep throat. Please take the amoxicillin as prescribed until gone. You will be contagious for 24 hours after starting the medication. Take Tylenol or Ibuprofen for pain or fever, if able. Rest and stay hydrated. Follow up with your PCP in 3 days if symptoms are not improving. Go to the ER immediately if you develop worsening symptoms such as shortness of breath, difficulty swallowing. Patient Language: [place] Prescriptions: New amoxicillin 875 mg tablet 875 mg PO Q12H 10 Days Qty: 20 0RF No Action paroxetine HCl 10 mg tablet PO buspirone 10 mg tablet sertraline 25 mg tablet propranolol 20 mg tablet (DME) BreatheRite MDI Spacer Spacer See Rx Instructions .ROUTE .MEDSUPPLY Qty: 1 0RF Rx Instructions: As directed Zepbound 5 mg/0.5 mL pen injector 5 mg subcut WEEKLY Qty: 2 0RF vitamin B complex [B Complex-Vitamin B12] Tablet 1 tablet PO DAILY Mirena 20 mcg/24 hours (5 yrs) 52 mg intrauterine device 1 device I-UTERINE ONCE metoprolol succinate 50 mg tablet extended release 24 hr 50 mg PO DAILY Qty: 90 3RF spironolactone 50 mg tablet 50 mg PO DAILY Qty: 30 5RF meloxicam 7.5 mg tablet See Rx Instructions .ROUTE .COMPLEX Qty: 60 5RF Dose Instruction: TAKE 1 TO 2 TABLETS BY MOUTH DAILY Rx Instructions: TAKE 1 TO 2 TABLETS BY MOUTH DAILY verapamil 360 mg capsule,ext rel. pellets 24 hr See Rx Instructions .ROUTE .COMPLEX Qty: 90 0RF Dose Instruction: TAKE 1 CAPSULE BY MOUTH DAILY Rx Instructions: TAKE 1 CAPSULE BY MOUTH DAILY hydrochlorothiazide 25 mg tablet See Rx Instructions .ROUTE .COMPLEX Qty: 90 0RF Dose Instruction: TAKE 1 TABLET BY MOUTH EVERY MORNING Rx Instructions: TAKE 1 TABLET BY MOUTH EVERY MORNING Follow-up/Referrals: Jony Fernando MD [Primary Care Provider, Family Practice] Stand Alone Forms: Work/School Release IP Time of Disposition: 11:38
== END 2025-08-31 11:43 | disposition home or self-care (01) ==
PROVIDERS: Emergency Provider Nurse Practitioner; PCP Family Medicine
DX: J02.0 Streptococcal pharyngitis (principal); I10 Essential (primary) hypertension; F41.9 Anxiety disorder, unspecified; F32.A Depression, unspecified; E66.01 Morbid (severe) obesity due to excess calories; Z68.43 Body mass index [BMI] 50.0-59.9, adult; M17.0 Bilateral primary osteoarthritis of knee; Z98.84 Bariatric surgery status; Z87.891 Personal history of nicotine dependence
CPT/HCPCS: 87880; 99213; G0463